=== PATIENT | male | born 1985 | race Caucasian/White ===

== ENCOUNTER 2017-05-20 00:56 | Emergency (ER) | payer BC ==
[~2017-05-20] VITALS: Ht 180.3 cm; Wt 84.0 kg
[~2017-05-20 00:56] MED LIST: SILD50TA PO
[2017-05-20 00:58] VITALS: TEMP 36.7; Ht 180.3 cm; Wt 84.0 kg
[2017-05-20] MEDS ORDERED: XYLOCAINE 1%/SOD BICARB 20 ML VIAL INFIL ONE (01:10)
[2017-05-20] MEDS ORDERED: DIPHTHERIA/TETANUS/PERTUSSIS 0.5 ML SYR/VIAL IM. ONE (01:45)
--- NOTE | 2017-05-20 01:48 | EMERGENCY ROOM VISIT NOTE ---
ED Visit Note First contact with patient: 01:02 CHIEF COMPLAINT: Finger laceration HISTORY OF PRESENT ILLNESS: This 31-year-old patient presents to the emergency department with mother after cutting the left second and third finger on a knife on accident just prior to arrival. The bleeding has not stopped. Denies weakness or numbness of the finger. The patient has full range of motion of the fingers. The patient rates the pain as mild and 2/10. The patient denies any other injuries. The patient's tetanus shot is not up to date. REVIEW OF SYSTEMS: A 6 system review of systems was completed with positives and pertinent negatives listed in the HPI. ALLERGIES: None MEDICATIONS: None PMH: none SOCIAL HISTORY: No drug use PHYSICAL EXAM: Vital Signs: Reviewed Nurse's notes, vital signs stable. GENERAL : Pleasant male, in no acute distress, well developed, well nourished. SKIN: There are 2 lacerations: 2.6cm and a 3 cm long lacerations on the hall aspect of the 2nd and 3rd fingers. The edges gape apart with traction. There is no foreign material in the wounds and it looks clean. There is bleeding. No deep structures such as tendons, bones, or significant blood vessels are seen in the base of the wounds. Extension and flexion of the fingers are full and strong. Full range of motion of the wrist and other fingers. Capillary refill less than 2 seconds. Normal sensation to light and sharp touch. EMERGENCY DEPARTMENT COURSE: I examined the patient. #1 Location: left 2nd finger Total length: 3cm Complexity: simple Verbal consent was obtained after the risks and benefits were explained, including but not limited to bleeding, scarring, infection, pain, and bone/joint /nerve damage. At this time, the risks of the procedure are less than the risks of NOT performing the procedure. A time out was taken and the correct patient and site identified. The skin was prepped with betadine. The target area was anesthetized with 2 ml of 1% lidocaine without epinephrine digital block. Copious irrigation was performed using NSS. The skin was re-prepped with betadine and a sterile field set. The wound was explored for foreign bodies and none found. Examination revealed no injury to deep structures such as tendons, bone, or significant blood vessels. Debridement was not performed. The wound edges were approximated using 7, 5-0 simple interrupted nylon sutures. Hemostasis and excellent approximation was achieved. Antibacterial ointment and a sterile dressing applied. Detailed wound care instructions and signs and symptoms of infection reviewed with the pt. No complications and the patient tolerated the procedure well. #2 Finger 3 with a 2.6cm laceration that is simple. Using sterile technique the wound was cleansed with Betadine. 2 ml of 1% buffered lidocaine was used to perform a digital block to anesthetize the patient. The area was sterilely draped. Once the patient was anesthetized, the wound was copiously irrigated under pressure with sterile saline. The wound was explored and there were no deep structures injured. The laceration was repaired using 5 simple interrupted 5-0 nylon sutures. The patient tolerated the procedure well. Hemostasis was achieved. The area was cleaned with sterile saline and dressed with bacitracin ointment and bandage. The patient was given a tetanus booster. The patient was discharged home in good condition. DIAGNOSIS: #1 Finger lacerations to the left hand of the second and third fingers DISCHARGE INSTRUCTIONS & TREATMENT: Keep wound clean and dry. Do not allow any crusting or dried blood to accumulate on sutures. If this occurs, use a 1:1 solution of hydrogen peroxide/water on a Q-tip to clean the wound. Use an antibiotic ointment for 3-4 days, then let wound dry. Suture removal in 10-12 days. Return sooner for any signs of infection (increasing redness, swelling, drainage). Ice and elevate for swelling and pain. Ibuprofen 600 mg and Tylenol 500 mg every 6 hrs for pain. Keep covered when in sun until sutures removed then SPF 50 or higher for one year. Vitamin E oil if desired two weeks after suture removal for reduction of scar. Current/Historical Medications Scheduled Sildenafil Citrate (Viagra), 50 MG PO PRN Allergies Coded Allergies: No Known Allergies (Unverified , 11/21/11) Vital Signs Date Time Temp Pulse Resp B/P (MAP) Pulse Ox O2 Delivery O2 Flow Rate FiO2 05/20/17 00:58 36.7 86 16 138/85 97 Room Air Departure Information Referrals Jose Jansen DO (PCP) Patient Instructions [facility]
[2017-05-20 02:04] VITALS: BP 121/71; PULSE 71; O2SAT 97
== END 2017-05-20 02:04 | disposition home or self-care (01) ==
LOC: C.EDB 00:57
DX: S61.215A Laceration without foreign body of left ring finger without damage to nail, initial encounter (principal); S61.213A Laceration without foreign body of left middle finger without damage to nail, initial encounter; W26.0XXA Contact with knife, initial encounter

== ENCOUNTER 2024-06-22 01:46 | Observation (INO) ==
[2024-06-22] MEDS: LORazepam 1 MG/1 ML SYR ED Inj Use ONE (02:33)
[2024-06-22] MEDS: LORazepam 1 MG/1 ML SYR ED Inj Use IV STA (02:35)
[2024-06-22 02:55] LABS: Basophils # (auto) 0.01 K/uL (0.00-0.20); Basophils % (auto) 0.2 %; Eosinophils # (auto) 0.04 K/uL (0.00-0.50); Eosinophils % (auto) 0.8 %; Hematocrit (blood only) 40.4 % (42.0-52.0); Hemoglobin 14.7 g/dl (14.0-18.0); Immature Granulocytes # (auto) 0.02 K/uL (0.01-0.20); Immature Granulocytes % (auto) 0.4 %; Lymphocytes # (auto) 1.68 K/uL (1.20-3.40); Lymphocytes % (auto) 32.7 %; Mean Corpuscular Hemoglobin 29.9 pg (25.0-34.0); Mean Corpuscular Hgb Conc 36.4 g/dL (32.0-36.0); Mean Corpuscular Volume 82.1 fL (80.0-100.0); Mean Platelet Volume 9.4 fL (9.4-12.4); Monocytes # (auto) 0.72 K/uL (0.11-0.59); Neutrophils # (auto) 2.66 K/uL (1.40-6.50); Neutrophils % (auto) 51.9 %; Platelet Count 210 K/uL (130-400); RDW Coefficient of Variation 11.9 % (11.5-14.5); RDW Standard Deviation 35.2 fL (36.4-46.3); Red Blood Count 4.92 M/uL (4.70-6.10); White Blood Count 5.13 K/ul (4.8-10.8)
[2024-06-22 03:09] LABS: Albumin Globulin Ratio 1.5 (0.9-2); Albumin Level 4.1 gm/dl (3.4-5.0); BUN Creatinine Ratio 16.3 (10-20); Bilirubin,Total 0.5 mg/dl (0.2-1.0); Calcium 9.4 mg/dl (8.6-10.3); Creatinine Clr Calc Pharmacy 119.1 ml/min; Globulin 2.8 gm/dl (2.5-4.0); Potassium 3.7 mmol/L (3.5-5.1); Total Protein 6.9 gm/dl (6.0-8.3)
[2024-06-22 03:16] LABS: Troponin I High Sensitivity 3.7 pg/ml (0-20)
[2024-06-22] MEDS: ONDANSETRON INJ 2 MG/ML 2 ML VIAL ONE (04:03)
[2024-06-22] MEDS: FAMOTIDINE 20MG IV PUSH 20 MG/5 ML SYR IV STA (04:53)
[2024-06-22] MEDS: SODIUM CHLORIDE 0.9% 500 ML IV ONE ×2 (04:53→07:57)
--- NOTE | 2024-06-22 05:07 | Emergency Department Note ---
Impression & Plan Abdominal pain, epigastric, Hematuria the case was signed out to Dr. Vergara at change of shift ED Provider Note NAME: KINSEY KENT AGE: 38 SEX: Male INFORMANT: Patient ED PROVIDER(S): Karli Banegas DO CHIEF COMPLAINT: epigastric pain PLAN: Disposition: the case was signed out to Dr. Vergara at change of shift MEDICAL DECISION MAKING: This is a 38-year-old male who presents to the emergency department with epigastric pain, nausea and slight fever. Patient describes having a GI illness 2 days ago. He began to take Pepto-Bismol and now has some black stools. he admits that he is extremely anxious and has been breathing very fast. He admits that he forced himself to vomit and wonders if he could have strained himself while vomiting. Laboratory studies revealed no leukocytosis or anemia. Renal function and LFTs were normal. Glucose was 132. Troponin was negative. Urinalysis showed no signs of infection but did reveal hematuria. Patient now complains of some epigastric discomfort which radiates to the left flank and left back. I was concerned for the possibility of a ureteral stone and ordered the patient had a CT scan of the abdomen/pelvis to rule out ureteral colic. Patient also complained of some nausea and was given a dose of IV Zofran. I discussed the case with Dr. Vergara who will assume care of the patient and follow-up on the results of the CAT scan. Care/management discussed with: Dr. Vergara Triage Nursing notes: reviewed and agree with them. Vital Signs: reviewed and remarkable for Tachypnea and hyperventilation Chronic Medical/Social Conditions affecting care: patient suffers from some anxiety and is hyperventilating Differential Diagnosis: Boerhaave's syndrome; gastritis, gastric esophageal reflux disease, anxiety, pancreatitis, cholecystitis, aortic dissection, ureteral colic Diagnostics, independently interpreted by me: ECG: normal sinus rhythm at a rate of [address] segment elevation or signs of ischemia. There is no ectopy. Cardiac Monitoring: Normal sinus rhythm at a rate of 72 HPI: 38 year old Male arrives for evaluation of epigastric pain and nausea. patient developed epigastric pain, nausea and slight fever 2 days ago. Patient describes having a GI illness 2 days ago. He began to take Pepto-Bismol and now has some black stools. he admits that he is extremely anxious and has been breathing very fast. He admits that he forced himself to vomit and wonders if he could have strained himself while vomiting. while here in the emergency department, the patient noted that the discomfort in his epigastrium has now radiated into his left upper quadrant and into the his left flank. PAST MEDICAL HISTORY: None, SOCIAL HISTORY: with 1 child and works from home, HOME MEDICATIONS: see list ALLERGIES: none VITALS: See Below PHYSICAL EXAMINATION: General: The patient is extremely anxious and hyperventilating on my initial exam. HEENT: Head - normocephalic and atraumatic. Pupils are equal, round, and reactive to light. Extraocular eye muscles are intact, and sclera are anicteric. Nose - moist nasal mucosa without discharge. Mouth - moist buccal mucosa. Oropharynx is nonerythematous and there is no tonsillar exudate or edema noted. Neck: Supple; no Cervical lymphadenopathy or nuchal rigidity Heart: Regular rate and rhythm. There is a normal S1 and S2 with no murmurs, clicks, or gallops appreciated. Lungs: Clear to auscultation bilaterally with no wheezes, rales, or rhonchi. Abdomen: Soft, mild tenderness to palpation in the epigastrium. There are normal bowel sounds. There are no palpable pulsatile masses or hepatosplenomegaly. There is no guarding, rigidity, or rebound noted. Extremities: No evidence of cyanosis, clubbing, or edema. There are easily palpable peripheral pulses. Skin: warm and dry with good turgor and no rashes. Emergency Department treatment: desk monitor, IV Ativan, IV Zofran emergency department course: The patient was evaluated in room A-10. A complete history and physical was performed. An IV lock was initiated and the patient was given a dose of IV Ativan for extreme anxiety upon presentation. This helped him relax significantly. Laboratory studies were drawn as above. An order was placed for continuous cardiac monitoring. The patient was in a normal sinus rhythm at a rate of 72. A twelve-lead EKG was obtained as described above. Patient complained of some nausea and was given a dose of IV Zofran. patient continued to complain of epigastric discomfort and was given a dose of IV Pepcid which gave him some relief. He was finally able to give a a urine specimen which showed hematuria. The patient was ordered to go for CT scan of the abdomen/pelvis to rule out ureteral stone. The case will be signed out to Dr. Vergara at change of shift. Past Med/Surg History Problem List (Updated 06/22/24 @ 17:02 by Karli Banegas DO) Hematuria (Acute) Abdominal pain, epigastric (Acute) Acute cholecystitis Social History Smoking Status: Never smoker Feels Safe at Home: Yes Allergies Allergies Allergy/AdvReac Type Severity Reaction Status Date / Time No Known Allergies Allergy Unverified 05/20/17 01:58 Home Meds Home Medications Medication Instructions Recorded Confirmed doxycycline hyclate 100 mg capsule 100 mg PO BID 06/22/24 06/22/24 Results & Data (ED) Vital Signs Vital Signs - 24 hr 06/22/24 01:47 06/22/24 01:53 06/22/24 02:12 Temperature 36.3 C L Temperature Source Temporal Artery Scan Pulse Rate 81 75 Pulse Rate [Apical] Pulse Rate [Right Finger] Pulse Rate from SpO2 Sensor Pulse Rhythm [Apical] Respiratory Rate 30 H Respiratory Effort / Characteristics Non-Labored Non-Labored Respiratory Depth Normal Normal Respiratory Pattern Blood Pressure 135/89 Blood Pressure [Left Arm] Blood Pressure [Right Arm] Blood Pressure Mean 104 Blood Pressure Mean [Left Arm] Blood Pressure Mean [Right Arm] Blood Pressure Position [Left Arm] Blood Pressure Position [Right Arm] Pulse Oximetry 100 Oxygen Delivery Method Room Air Oxygen Flow Rate Sepsis Recent Fever Within 48 Hours No Sepsis New/Unexplained Change in Mental Status No Sepsis Action Taken by Nursing No Action Required 06/22/24 02:19 06/22/24 02:21 06/22/24 02:30 Temperature Temperature Source Pulse Rate 76 77 Pulse Rate [Apical] Pulse Rate [Right Finger] Pulse Rate from SpO2 Sensor 79 77 Pulse Rhythm [Apical] Respiratory Rate 15 16 Respiratory Effort / Characteristics Respiratory Depth Respiratory Pattern Blood Pressure Blood Pressure [Left Arm] Blood Pressure [Right Arm] Blood Pressure Mean Blood Pressure Mean [Left Arm] Blood Pressure Mean [Right Arm] Blood Pressure Position [Left Arm] Blood Pressure Position [Right Arm] Pulse Oximetry 100 100 Oxygen Delivery Method Room Air Oxygen Flow Rate Sepsis Recent Fever Within 48 Hours Sepsis New/Unexplained Change in Mental Status Sepsis Action Taken by Nursing 06/22/24 02:34 06/22/24 02:51 06/22/24 02:57 Temperature Temperature Source Pulse Rate 69 77 Pulse Rate [Apical] Pulse Rate [Right Finger] Pulse Rate from SpO2 Sensor 69 76 Pulse Rhythm [Apical] Respiratory Rate 15 17 Respiratory Effort / Characteristics Respiratory Depth Respiratory Pattern Blood Pressure Blood Pressure [Left Arm] Blood Pressure [Right Arm] Blood Pressure Mean Blood Pressure Mean [Left Arm] Blood Pressure Mean [Right Arm] Blood Pressure Position [Left Arm] Blood Pressure Position [Right Arm] Pulse Oximetry 98 100 99 Oxygen Delivery Method Room Air Oxygen Flow Rate Sepsis Recent Fever Within 48 Hours Sepsis New/Unexplained Change in Mental Status Sepsis Action Taken by Nursing 06/22/24 03:10 06/22/24 03:10 06/22/24 03:10 Temperature Temperature Source Pulse Rate Pulse Rate [Apical] Pulse Rate [Right Finger] Pulse Rate from SpO2 Sensor Pulse Rhythm [Apical] Respiratory Rate Respiratory Effort / Characteristics Respiratory Depth Respiratory Pattern Blood Pressure 154/92 H 154/92 H 154/92 H Blood Pressure [Left Arm] Blood Pressure [Right Arm] Blood Pressure Mean 119 119 119 Blood Pressure Mean [Left Arm] Blood Pressure Mean [Right Arm] Blood Pressure Position [Left Arm] Blood Pressure Position [Right Arm] Pulse Oximetry Oxygen Delivery Method Oxygen Flow Rate Sepsis Recent Fever Within 48 Hours Sepsis New/Unexplained Change in Mental Status Sepsis Action Taken by Nursing 06/22/24 03:21 06/22/24 03:36 06/22/24 04:00 Temperature Temperature Source Pulse Rate 68 71 Pulse Rate [Apical] Pulse Rate [Right Finger] Pulse Rate from SpO2 Sensor 72 71 Pulse Rhythm [Apical] Respiratory Rate 12 22 Respiratory Effort / Characteristics Respiratory Depth Respiratory Pattern Blood Pressure 133/85 Blood Pressure [Left Arm] Blood Pressure [Right Arm] Blood Pressure Mean 94 Blood Pressure Mean [Left Arm] Blood Pressure Mean [Right Arm] Blood Pressure Position [Left Arm] Blood Pressure Position [Right Arm] Pulse Oximetry 99 99 Oxygen Delivery Method Oxygen Flow Rate Sepsis Recent Fever Within 48 Hours Sepsis New/Unexplained Change in Mental Status Sepsis Action Taken by Nursing 06/22/24 04:15 06/22/24 04:21 06/22/24 04:33 Temperature Temperature Source Pulse Rate 75 66 72 Pulse Rate [Apical] Pulse Rate [Right Finger] Pulse Rate from SpO2 Sensor 77 66 72 Pulse Rhythm [Apical] Respiratory Rate 13 12 16 Respiratory Effort / Characteristics Respiratory Depth Respiratory Pattern Blood Pressure Blood Pressure [Left Arm] Blood Pressure [Right Arm] Blood Pressure Mean Blood Pressure Mean [Left Arm] Blood Pressure Mean [Right Arm] Blood Pressure Position [Left Arm] Blood Pressure Position [Right Arm] Pulse Oximetry 98 94 98 Oxygen Delivery Method Oxygen Flow Rate Sepsis Recent Fever Within 48 Hours Sepsis New/Unexplained Change in Mental Status Sepsis Action Taken by Nursing 06/22/24 04:42 06/22/24 04:54 06/22/24 04:55 Temperature Temperature Source Pulse Rate 74 80 Pulse Rate [Apical] Pulse Rate [Right Finger] Pulse Rate from SpO2 Sensor 73 82 Pulse Rhythm [Apical] Respiratory Rate 16 16 Respiratory Effort / Characteristics Respiratory Depth Respiratory Pattern Blood Pressure 158/88 H Blood Pressure [Left Arm] Blood Pressure [Right Arm] Blood Pressure Mean 110 Blood Pressure Mean [Left Arm] Blood Pressure Mean [Right Arm] Blood Pressure Position [Left Arm] Blood Pressure Position [Right Arm] Pulse Oximetry 99 96 Oxygen Delivery Method Oxygen Flow Rate Sepsis Recent Fever Within 48 Hours Sepsis New/Unexplained Change in Mental Status Sepsis Action Taken by Nursing 06/22/24 04:55 06/22/24 04:55 06/22/24 05:00 Temperature Temperature Source Pulse Rate 73 Pulse Rate [Apical] Pulse Rate [Right Finger] Pulse Rate from SpO2 Sensor 72 Pulse Rhythm [Apical] Respiratory Rate 16 Respiratory Effort / Characteristics Respiratory Depth Respiratory Pattern Blood Pressure 158/88 H 158/88 H Blood Pressure [Left Arm] Blood Pressure [Right Arm] Blood Pressure Mean 110 110 Blood Pressure Mean [Left Arm] Blood Pressure Mean [Right Arm] Blood Pressure Position [Left Arm] Blood Pressure Position [Right Arm] Pulse Oximetry 95 Oxygen Delivery Method Oxygen Flow Rate Sepsis Recent Fever Within 48 Hours Sepsis New/Unexplained Change in Mental Status Sepsis Action Taken by Nursing 06/22/24 05:00 06/22/24 05:00 06/22/24 05:00 Temperature Temperature Source Pulse Rate Pulse Rate [Apical] Pulse Rate [Right Finger] Pulse Rate from SpO2 Sensor Pulse Rhythm [Apical] Respiratory Rate Respiratory Effort / Characteristics Respiratory Depth Respiratory Pattern Blood Pressure 164/90 H 164/90 H 164/90 H Blood Pressure [Left Arm] Blood Pressure [Right Arm] Blood Pressure Mean 108 108 108 Blood Pressure Mean [Left Arm] Blood Pressure Mean [Right Arm] Blood Pressure Position [Left Arm] Blood Pressure Position [Right Arm] Pulse Oximetry Oxygen Delivery Method Oxygen Flow Rate Sepsis Recent Fever Within 48 Hours Sepsis New/Unexplained Change in Mental Status Sepsis Action Taken by Nursing 06/22/24 05:27 06/22/24 05:30 06/22/24 05:30 Temperature Temperature Source Pulse Rate 75 Pulse Rate [Apical] Pulse Rate [Right Finger] Pulse Rate from SpO2 Sensor 76 Pulse Rhythm [Apical] Respiratory Rate 16 Respiratory Effort / Characteristics Respiratory Depth Respiratory Pattern Blood Pressure 167/86 H 167/86 H Blood Pressure [Left Arm] Blood Pressure [Right Arm] Blood Pressure Mean 119 119 Blood Pressure Mean [Left Arm] Blood Pressure Mean [Right Arm] Blood Pressure Position [Left Arm] Blood Pressure Position [Right Arm] Pulse Oximetry 96 Oxygen Delivery Method Oxygen Flow Rate Sepsis Recent Fever Within 48 Hours Sepsis New/Unexplained Change in Mental Status Sepsis Action Taken by Nursing 06/22/24 05:36 06/22/24 05:42 06/22/24 06:16 Temperature Temperature Source Pulse Rate 78 73 70 Pulse Rate [Apical] Pulse Rate [Right Finger] Pulse Rate from SpO2 Sensor 79 73 Pulse Rhythm [Apical] Respiratory Rate 14 17 Respiratory Effort / Characteristics Respiratory Depth Respiratory Pattern Blood Pressure Blood Pressure [Left Arm] Blood Pressure [Right Arm] Blood Pressure Mean Blood Pressure Mean [Left Arm] Blood Pressure Mean [Right Arm] Blood Pressure Position [Left Arm] Blood Pressure Position [Right Arm] Pulse Oximetry 97 97 Oxygen Delivery Method Oxygen Flow Rate Sepsis Recent Fever Within 48 Hours Sepsis New/Unexplained Change in Mental Status Sepsis Action Taken by Nursing 06/22/24 06:21 06/22/24 07:51 06/22/24 09:03 Temperature Temperature Source Pulse Rate 69 75 71 Pulse Rate [Apical] Pulse Rate [Right Finger] Pulse Rate from SpO2 Sensor 70 74 71 Pulse Rhythm [Apical] Respiratory Rate 17 20 19 Respiratory Effort / Characteristics Respiratory Depth Respiratory Pattern Blood Pressure 133/84 144/79 H Blood Pressure [Left Arm] Blood Pressure [Right Arm] Blood Pressure Mean 100 100 Blood Pressure Mean [Left Arm] Blood Pressure Mean [Right Arm] Blood Pressure Position [Left Arm] Blood Pressure Position [Right Arm] Pulse Oximetry 97 99 97 Oxygen Delivery Method Oxygen Flow Rate Sepsis Recent Fever Within 48 Hours Sepsis New/Unexplained Change in Mental Status Sepsis Action Taken by Nursing 06/22/24 09:30 06/22/24 13:03 06/22/24 13:37 Temperature 37.1 C Temperature Source Oral Pulse Rate 72 Pulse Rate [Apical] Pulse Rate [Right Finger] 80 Pulse Rate from SpO2 Sensor 74 Pulse Rhythm [Apical] Respiratory Rate 20 18 20 Respiratory Effort / Characteristics Non-Labored Respiratory Depth Normal Respiratory Pattern Regular Blood Pressure 130/78 143/82 H Blood Pressure [Left Arm] Blood Pressure [Right Arm] 148/78 H Blood Pressure Mean 93 102 Blood Pressure Mean [Left Arm] Blood Pressure Mean [Right Arm] 101 Blood Pressure Position [Left Arm] Blood Pressure Position [Right Arm] Semi-fowlers Pulse Oximetry 97 97 99 Oxygen Delivery Method Room Air Oxygen Flow Rate Sepsis Recent Fever Within 48 Hours Sepsis New/Unexplained Change in Mental Status Sepsis Action Taken by Nursing 06/22/24 16:07 06/22/24 16:15 06/22/24 16:25 Temperature 36.6 C Temperature Source Temporal Artery Scan Pulse Rate Pulse Rate [Apical] 101 H 98 H 94 H Pulse Rate [Right Finger] Pulse Rate from SpO2 Sensor Pulse Rhythm [Apical] Regular Regular Regular Respiratory Rate 23 15 13 Respiratory Effort / Characteristics Non-Labored Spontaneous Non-Labored Spontaneous Non-Labored Spontaneous Respiratory Depth Normal Normal Normal Respiratory Pattern Regular Regular Regular Blood Pressure Blood Pressure [Left Arm] 152/87 H 149/96 H 149/86 H Blood Pressure [Right Arm] Blood Pressure Mean Blood Pressure Mean [Left Arm] 108 113 107 Blood Pressure Mean [Right Arm] Blood Pressure Position [Left Arm] Semi-fowlers Semi-fowlers Semi-fowlers Blood Pressure Position [Right Arm] Pulse Oximetry 100 98 97 Oxygen Delivery Method Oxymask Room Air Room Air Oxygen Flow Rate 5 Sepsis Recent Fever Within 48 Hours Sepsis New/Unexplained Change in Mental Status Sepsis Action Taken by Nursing 06/22/24 16:35 Temperature 36.8 C Temperature Source Oral Pulse Rate Pulse Rate [Apical] 99 H Pulse Rate [Right Finger] Pulse Rate from SpO2 Sensor Pulse Rhythm [Apical] Regular Respiratory Rate 22 Respiratory Effort / Characteristics Non-Labored Spontaneous Respiratory Depth Normal Respiratory Pattern Regular Blood Pressure Blood Pressure [Left Arm] 127/87 Blood Pressure [Right Arm] Blood Pressure Mean Blood Pressure Mean [Left Arm] 100 Blood Pressure Mean [Right Arm] Blood Pressure Position [Left Arm] Semi-fowlers Blood Pressure Position [Right Arm] Pulse Oximetry 97 Oxygen Delivery Method Room Air Oxygen Flow Rate Sepsis Recent Fever Within 48 Hours Sepsis New/Unexplained Change in Mental Status Sepsis Action Taken by Nursing Laboratory Data 06/22/24 02:34 06/22/24 02:34 Lab Results 06/22/24 06/22/24 Range/Units 02:34 Unknown WBC 5.13 (4.8-10.8) K/ul RBC 4.92 (4.70-6.10) M/uL Hgb 14.7 (14.0-18.0) g/dl Hct 40.4 L (42.0-52.0) % MCV 82.1 (80.0-100.0) fL MCH 29.9 (25.0-34.0) pg MCHC 36.4 H (32.0-36.0) g/dL RDW Std Deviation 35.2 L (36.4-46.3) fL RDW Coeff of Jenelle 11.9 (11.5-14.5) % Plt Count 210 (130-400) K/uL MPV 9.4 (9.4-12.4) fL Immature Gran % (Auto) 0.4 % Neut % (Auto) 51.9 % Lymph % (Auto) 32.7 % [place] % (Auto) 14.0 % Eos % (Auto) 0.8 % Baso % (Auto) 0.2 % Neut # (Auto) 2.66 (1.40-6.50) K/uL Lymph # (Auto) 1.68 (1.20-3.40) K/uL [place] # (Auto) 0.72 H (0.11-0.59) K/uL Eos # (Auto) 0.04 (0.00-0.50) K/uL Baso # (Auto) 0.01 (0.00-0.20) K/uL Immature Gran # (Auto) 0.02 (0.01-0.20) K/uL Sodium 137 (136-145) mmol/L Potassium 3.7 (3.5-5.1) mmol/L Chloride 104 (98-107) mmol/L Carbon Dioxide 24 (21-32) mmol/L Anion Gap 9 (3-11) BUN 14 (6-23) mg/dl Creatinine 0.86 (0.6-1.4) mg/dl Est Cr Clr Drug Dosing 119.1 ml/min eGFR 112.96 BUN/Creatinine Ratio 16.3 (10-20) Glucose 132 H (70-99(Fasting)) mg/dl Calcium 9.4 (8.6-10.3) mg/dl Total Bilirubin 0.5 (0.2-1.0) mg/dl AST 22 (13-39) U/L ALT 19 (7-52) U/L Alkaline Phosphatase 62 (34-104) U/L Troponin I High Sens 3.7 (0-20) pg/ml Total Protein 6.9 (6.0-8.3) gm/dl Albumin 4.1 (3.4-5.0) gm/dl Globulin 2.8 (2.5-4.0) gm/dl Albumin/Globulin Ratio 1.5 (0.9-2) Lipase 25 (11-82) U/L Urine Color Dark Yellow Urine Appearance Clear (Clear) Urine pH 7.5 (4.5-7.5) Ur Specific [place] 1.044 H (1.000-1.030) Urine Protein 1+ H (Negative) Urine Glucose (UA) Negative (Negative) Urine Ketones 1+ H (Negative) Urine Blood Negative (Negative) Urine Nitrite Negative (Negative) Urine Bilirubin Negative (Negative) Urine Urobilinogen Negative (Negative) Ur Leukocyte Esterase Negative (Negative) Urine WBC (Auto) 0-5 (0-5) /hpf Urine RBC (Auto) 3-5 H (0-2) /hpf U Hyaline Cast (Auto) 0-2 (0-2) /lpf U Epithel Cells (Auto) 0-2 (0-2) /hpf Urine Bacteria (Auto) 1+ H (None Seen) Calcium Oxalate Crystal Present A (None Prsent) Amorphous Sediment Present A (None Prsent) Urine Mucus Present A (None Prsent) Administered Medications Lactated Ringer's (Lr) 1,000 mls @ 15 mls/hr IV .Q24H [facility] Stop: 06/23/24 13:44 Last Admin: 06/22/24 13:49 Dose: 15 mls/hr Documented By: KLR Discontinued Medications Bupivacaine HCl/Epinephrine Bitart (Bupivacaine/Epinephrine 0.25% 1:200,000 30 Ml Vial) Confirm Administered Dose 30 ml .ROUTE .STK-MED ONE Stop: 06/22/24 13:54 Last Admin: 06/22/24 15:25 Dose: 20 ml Documented By: FRANK Famotidine (Pepcid 20mg Iv Push) 20 mg in 5 mls @ 2.5 mls/min IV NOW STA Stop: 06/22/24 04:51 Last Admin: 06/22/24 04:53 Dose: 2.5 mls/min Documented By: DEANN Sodium Chloride (Nss) 500 mls @ 999 mls/hr IV .Q31M ONE Stop: 06/22/24 05:20 Last Infusion: 06/22/24 05:47 Dose: Infused Documented By: Admin: 06/22/24 04:53 Dose: 999 mls/hr Documented By: DEANN Sodium Chloride (Nss) 500 mls @ 999 mls/hr IV .Q31M ONE Stop: 06/22/24 07:03 Last Infusion: 06/22/24 13:26 Dose: Infused Documented By: Admin: 06/22/24 07:57 Dose: 999 mls/hr Documented By: Piperacillin Sod/Tazobactam Sod (Zosyn) 4.5 gm in 100 mls @ 200 mls/hr IV NOW ONE; Protocol Stop: 06/22/24 12:48 Last Infusion: 06/22/24 13:26 Dose: Infused Documented By: Admin: 06/22/24 12:29 Dose: 200 mls/hr Documented By: ALBERTO Lorazepam (Lorazepam 1 Mg/1 Ml Syr Ed Inj Use) Confirm Administered Dose 1 mg .ROUTE .STK-MED ONE Stop: 06/22/24 02:33 Last Admin: 06/22/24 02:33 Dose: 1 mg Documented By: DEANN Lorazepam (Lorazepam 1 Mg/1 Ml Syr Ed Inj Use) 1 mg IV ONE STA Stop: 06/22/24 02:35 Last Admin: 06/22/24 02:35 Dose: Not Given Documented By: DEANN Ondansetron HCl (Ondansetron Inj 2 Mg/Ml 2 Ml Vial) Confirm Administered Dose 4 mg .ROUTE .STK-MED ONE Stop: 06/22/24 04:03 Last Admin: 06/22/24 04:03 Dose: 4 mg Documented By: DEANN Imaging Data Radiologist's Impression: Abdomen/Pelvis CT 06/22/24 07:05 EXAM: CT abd pelvis wo con CLINICAL HISTORY: eval for a left sided kidney stone. TECHNIQUE: A CT scan of the abdomen and pelvis was performed without IV contrast. Coronal and sagittal reconstructive images were also obtained. One of the following dose reduction techniques were utilized for this exam: Automated exposure control, adjustment of the mA and/or kV according to patient size, and use of iterative reconstruction. COMPARISON: None. FINDINGS: The gallbladder is seen distended measuring about 8.5 x 4.5 cm. No radiodense stones could be identified. There is mild wall thickening with pericholecystic minimal fat stranding much evident at the fundus region. The kidneys are normal in size and shape. No calculi, masses, or hydronephrosis. No ureteric stones or evident hydroureter was observed admitted The liver is normal in size. No diffuse parenchymal abnormality. The intrahepatic biliary radicals and the bile ducts are normal. Left hepatic lobe hypodense focal lesion measures 9 mm. Mildly enlarged spleen. No focal lesion was observed. The pancreas and adrenal glands are unremarkable. Multiple small mesenteric lymph nodes were observed the largest measures 10 x 7 mm. Colonic diverticulosis. No diverticulitis. The visualized small bowel loops are unremarkable. No CT evidence of acute appendicitis. The urinary bladder shows a slightly thickened wall measures up to 4 mm. No stones, mass, or diverticula were observed. The prostate was unremarkable. No evidence of pelvic lymphadenopathy. No ascites. A scan through the lower chest reveals a right lung lower lobe nodule measuring about 5.5 mm. L1 small sclerotic focus was observed likely a bone island. IMPRESSION: 1. The gallbladder is distended showing mild wall thickening with pericholecystic minimal fat stranding much evident at the fundus region. No radiodense stones could be identified. Findings are concerning for early cholecystitis. Clinical correlation and further ultrasound evaluation are recommended. 2. No renal stones or hydronephrosis. 3. The left hepatic lobe hypodense focal lesion measures 9 mm. This could be a hepatic cyst or a hemangioma. If clinically needed, further evaluation with triphasic CT/MRI may be recommended. 4. Mild splenomegaly. 5. Multiple small mesenteric lymph nodes were observed the largest measures 10 x 7 mm. 6. Colonic diverticulosis. No diverticulitis. 7. The urinary bladder shows a slightly thickened wall that measures up to 4 mm. Urine analysis correlation is advised. 8. A right lung lower lobe nodule measures about 5.5 mm. According to the Fleischner Society pulmonary nodule recommendations for low-risk patients no routine follow-up is required and for high-risk patients optional CT at 12 months is advised. Electronically signed by Eldon Byrnes 06-22-2024 09:09 AM Gallbladder Ultrasound 06/22/24 09:17 ABDOMINAL ULTRASOUND, RIGHT UPPER QUADRANT HISTORY: Acute right upper quadrant abdominal pain upper abd pain. COMPARISON: CT 06/22/2024 FINDINGS: Pancreas: The pancreas is obscured by bowel gas. Liver: Unremarkable. Gallbladder: Nonspecific borderline gallbladder wall thickening measures up to 4 mm. Trace pericholecystic fluid. Layering gallbladder sludge. Distention measuring up to 11 cm. Positive sonographic Mcdonough sign. No shadowing gallstones identified by ultrasound. CBD: 4 mm, not well seen. Right kidney: No hydronephrosis. IMPRESSION: 1. Sludge-filled gallbladder is distended with wall thickening. Additionally, the sonographic Mcdonough sign was reported as positive and there is trace pericholecystic fluid without shadowing cholelithiasis identified by ultrasound. Findings may represent acute cholecystitis within the appropriate clinical setting. Nuclear medicine hepatobiliary scan may also be considered. 2. No biliary ductal dilation. ACT 112: Negative or not required by law. Electronically signed by: Eduardo Huynh M.D. 06/22/2024 10:09 AM Discharge Plan Visit Data Chief Complaint: Respiratory Problems Stated Complaint: HARD TO BREATHE ED Provider: Eyad Vergara Discharge Problem: Abdominal pain, epigastric, Hematuria Patient Disposition: Admitted As Inpatient Discharge Instructions Interventions: ED Discharge Assessment Last Done: 06/22/24 13:24
--- OUTSIDE RECORDS SUMMARY | 2024-06-22 06:45 | External Medical Summary | Summary of Care ---
Author Name Unknown Organization [facility] Address [address] [place] [address] Phone [phone] Care Team Providers Care Body Cleaner Name Role Phone Greg Bateman MD Primary Care Provider [phone] Reason for Visit * Reason Comments Cough Pt here for complain ts of a cough since Tuesday. Pt states that the coughing is now causing chest discomfort. Encounter Details Date Type Department Care Team (Late st Contact Info) Description 01/05/2024 9:00 AM EDT Office Visit Family Practice [facility] [address] [place] [address] Schuyler Lauren MD [address] [place] [address] Viral upper respiratory tract infection*; Postnasal drip Allergies No known active allergiesdocumented as of this encounter (statuses as of 01/05/2024) Medications Medication Sig Dispensed Refills Start Date End Date Status Multi Vitamin Oral Tablet Take 1 Each by mouth in the morning. Active documented as of this encounter (statuses as of 01/05/2024) Active Problems Problem Noted Date Diagnosed Date Routine child health exam 09/28/2000 PROPHY. VACCINATION AGAINST TETANUS-DIPHTHERIA ( TD) 09/28/2000 ACNE VULGARIS documented as of this encounter (statuses as of 01/05/2024) Immunizations Name Administration Dates Next Due TDAP (age 10 and older)(Boostrix) 12/01/2022 documented as of this encounter Social History Tobacco Use Types Packs/Day Years Used Date Smoking Tobacco: Never Alcohol Use Standard Drinks/Week Comments No 0 (1 standard drink = 0.6 oz pur e alcohol) Hunger Vital Sign Answer Date Recorded Within the past 12 months, y ou worried that your food would run out before you got the money to buy more. Never true 12/26/19 24 Within the past 12 months, t he food you bought just didn't last and you didn't have money to get more. Never true 12/26/2023 Childcare Answer Date Recorded Do you feel overwhelmed with taking care of a child, family member or friend? No 12/26/2023 Does your family need help f inding childcare? (Household - for ages 0-17 years) Not on file 12/26/2023 Clothing Answer Date Recorded Have you been unable to get clothing when it was really needed? No 12/26/2023 Is your family able to get c lothes or diapers when needed? (Household - for ages 0-17 years) Not on file 12/26/2023 Personal Safety Answer Date Recorded Do you feel unsafe or have concerns for your saf ety? No 12/26/2023 Do you have concerns for you r family's safety? (Household - for ages 0-17 years) Not on file 12/26/2023 Utilities Answer Date Recorded Do you have trouble paying y our heating, water, or electric bill? No 12/26/2023 Is your family able to pay t he heat, water, or electric bill? (Household - for ages 0-17 years) Not on file 12/26/2023 Does your family have access to good internet? (Household - for ages 0-17 years) Not on file 12/26/2023 Employment Status Answer Date Recorded Are you unemployed or without regular income? No 12/26/2023 Does the household have a re gular source of income? (Household - for ages 0-17 years) Not on file 12/26/2023 Social Connections Answer Date Recorded How often do you feel lonely or isolated from th ose around you? Rarely 12/26/2023 Financial Resource Strain Answer Date R ecorded Do you have any trouble payi ng for your medications, or do you think you might in the future? No 12/26/2023 Does your family have troubl e paying for medicine? (Household - for ages 0-17 years) Not on file 12/26/2023 Transportation Needs Answer Date Record ed Do you have trouble getting a ride to medical visits or work? (Adult - for ages 18 years and over) Not on file 12/26/2023 Does your family have a hard time getting a ride to doctors visits? (Household - for ages 0-17 years) Not on file 12/26/2023 Has lack of transportation k ept you from medical appointments, meetings, work, or from getting things needed for daily living? Check all that apply. No 12/26/2023 Do you (or your family) have trouble finding or paying for a ride (transportation)? (Household - for ages 0-17 years) Not on file 12/26/2023 Housing Stability Answer Date Recorded Do you currently live in a s helter or have no steady place to sleep at night? No 12/26/2023 Do you think you are at risk of becoming homeless? (Adult - for ages 18 years and over) Not on file 12/26/2023 Does your family worry about paying for your home or becoming homeless? (Household - for ages 0-17 years) Not on file 0 12/26/2023 Are you homeless or worried that you might be in the future? No 12/26/2023 Are you (or your family) nereida eless or worried that you might be in the future? (Household - for ages 0-17 years) Not on file Food Insecurity Answer Date Recorded Do you need food for this week? No 12/26/2023 Are you able to get enough f ood for your family? (Household - for ages 0-17 years) Not on file 12/26/2023 Does your family need food t his week? (Household - for ages 0-17 years) Not on file 12/26/2023 Do you always have enough fo od for your family? (Household - for ages 0-17 years) Not on file 12/26/2023 Sex and Gender Information Value Date Recorded Sex Assigned at Male 12/26/2023 4:57 PM EDT Gender Identity Male 12/26/2023 4:57 PM EDT Sexual Orientation Straight 12/26/2023 4: 57 PM EDT Job Start Date Occupation Industry Not on file Not on file Not on file documented as of this encounter Last Filed Vital Signs Vital Sign Reading Time Taken Comments Blood Pressure 124/82 01/05/2024 9:15 AM EDT Pulse 75 01/05/2024 9:15 AM EDT Temperature 36.4 C (97.5 F) 01/05/2024 9:15 AM ED T Respiratory Rate 16 01/05/2024 9:15 AM EDT Oxygen Saturation 96% 01/05/2024 9:15 AM EDT Inhaled Oxygen Concentration - - Weight 89.1 kg (196 lb 6.4 oz) 01/05/2024 9:15 A M EDT Height 179 cm (5' 10.47") 01/05/2024 9:15 AM EDT Body Mass Index 27.81 01/05/2024 9:15 AM EDT documented in this encounter Progress Notes * Schuyler Lauren MD - 01/05/2024 9:48 AM EDT Images from the original note were not included. History of Present Illness Augusto Leyva is a 38 year old male that presents for Cough (Pt here for complaints of a cough since Tuesday. Pt states that the coughing is now causing chest discomfort. ) Physical Exam BP 124/82 (BP Site: Left Arm, BP Position: Sitting, BP Cuff Size: Regular) | Pulse 75 | Temp 36.4 C (97.5 F) (Tympanic) | Resp 16 | Ht 1.79 m (5' 10.47") | Wt 89.1 kg (196 lb 6.4 oz) | SpO2 96% |BMI 27.81 kg/m | BSA 2.1 m AAOx3 Normal affect Non ill appearing NCAT/ PERRL Neck supple Throat without exudate but with evidence of postnasal drip redness RRR Lungs w/ faint rhonchi that clear easily with cough Abd soft +BS Ext warm and well perfused No gross neuro deficits Normal gait I have reviewed most recent labs None Assessment and Plan Viral upper respiratory tract infection - already defervescing. Sx control with below. Sleep. Hydrate. No abx indicated. He did take covid test at home x2 and both negative. Postnasal drip - causing of phonation changes/scratchy throat. Hot tea with honey Ibuprofen prn Sudafed prn Wrap-Up Prn - call if worsening Time: I spent a total of 10-19 minutes (exact time 15 mins) on the date of service in preparation, delivery, and documentation of the care provided to Augusto Leyva excluding any time spent in the performance of separately billed services. documented in this encounter Plan of Treatment Upcoming Encounters Date Type Department Care Team (Late st Contact Info) Description 12/31/2024 4:20 PM EDT Office Visit [facility] [address] [place] [address] September, Greg Leung MD [address] [place] [address] Health Maintenance Due Date Last Done Comments Depression Screening 1996 Diabetes Screening 01/06/2024 Postponed from 1984 (Other) HIV Screening 01/06/2024 Postponed from 10/27/1999 (Other) Influenza Vaccine (FLU shot) (#1) 2024 DTaP,Tdap,and Td Vaccines (8 - Td or Tdap) 12/01/2032 12/01/2022, 05/20/2017, 09/28/2000, Additional history exists Hepatitis B Vaccine Completed 04/26/1997, 10/24/1996, 09/24/1996 COVID-19 Vaccine Discontinued 06/08/2021, , 09/16/2020 HPV (Gardasil) Vaccine Aged Out No lo nger eligible based on patient's age to complete this topic Hepatitis C Screening Discontinued MENINGOCOCCAL (MENACTRA/MENVEO) Aged Out No longer eligible based on patient's age to complete this topic Pneumococcal Vaccine: Pediatrics (0 to 5 Years) and At-Risk Patients (6 to 64 Years) Aged Out No longer eligible based on patient's age to complete this topic documented as of this encounter Medical Devices Not on filedocumented as of this encounter Visit Diagnoses Diagnosis Viral upper respiratory tract infection- Primary Acute upper respiratory infections of unspecified site Postnasal drip documented in this encounter Care Teams Body Cleaner Relationship Specialty Start Date End Date September, Greg Leung MD [address] [id number] PCP - General Family Medicine 12/21/23 documented as of this encounter
--- OUTSIDE RECORDS SUMMARY | 2024-06-22 06:46 | External Medical Summary | Summary of Care ---
Author Name Unknown Organization [facility] Address [address] [place] [address] Phone [phone] Care Team Providers Care Division Operations Manager Name Role Phone Greg Bateman MD Primary Care Provider [phone] Encounter Details Date Type Department Care Team (Late st Contact Info) Description 12/27/2023 Telephone [facility] [address] [place] [address] Greg Bateman MD [address] [place] [address] Allergies No known active allergiesdocumented as of this encounter (statuses as of 01/04/2024) Medications No known medicationsdocumented as of this encounter (statuses as of 01/04/2024) Active Problems Problem Noted Date Diagnosed Date Routine child health exam 09/28/2000 PROPHY. VACCINATION AGAINST TETANUS-DIPHTHERIA ( TD) 09/28/2000 ACNE VULGARIS documented as of this encounter (statuses as of 01/04/2024) Immunizations Name Administration Dates Next Due TDAP [...] 12/26/2023 Does the household have a re lar source of income? (Household - for ages [...] on file documented as of this encounter Miscellaneous Notes * Telephone Encounter - Darío Wells MED ASSIST - 12/27/2023 5:01 PM EDT Called [facility] pharmacy to obtain vaccine record of TDAP documented in this encounter Plan of Treatment Upcoming Encounters Date Type Department Care Team (Late st Contact Info) Description 01/05/2024 9:00 AM EDT Office Visit [facility] [address] [place] [address] Schuyler Lauren MD [address] [place] [address] 12/31/2024 4:20 PM EDT Office Visit [facility] [address] [place] [address] SeptemberGreg MD [address] [place] [address] Health Maintenance Due Date Last Done Comments Diabetes Screening 1984 Depression Screening 1996 HIV Screening 10/27/1999 Hepatitis C Screening 2002 COVID-19 Vaccine ( season) 2023 06/08/2021, 10/14/2020, 09/16/2020 Influenza Vaccine (FLU shot) (#1) 2024 DTaP,Tdap,and Td Vaccines (8 - Td or Tdap) 12/01/2032 12/01/2022, 05/20/2017, 09/28/2000, Additional history exists Hepatitis B Vaccine Completed 04/26/1997, 10/24/1996, 09/24/1996 HPV (Gardasil) Vaccine Aged Out No lo nger eligible based on patient's age to complete this topic MENINGOCOCCAL (MENACTRA/MENVEO) Aged Out No longer eligible based on patient's age to complete this topic Pneumococcal Vaccine: Pediatrics (0 to 5 Years) and At-Risk Patients (6 to 64 Years) Aged Out No longer eligible based on patient's age to complete this topic documented as of this encounter Medical Devices Not on filedocumented as of this encounter Care Teams Division Operations Manager Relationship Specialty Start Date End Date September, Greg Leung MD [address] [place] [id number] PCP - General Family Medicine 12/21/23 documented as of this encounter
--- OUTSIDE RECORDS SUMMARY | 2024-06-22 06:46 | External Medical Summary | Summary of Care ---
Author Name Unknown Organization [facility] Address [address] [place] [address] Phone [phone] Care Team Providers Care Manager Mechanical Name Role Phone Greg Bateman MD Primary Care Provider [phone] Reason for Visit * Reason Onset Date Comments MyCode Consent 01/05/2024 Encounter Details Date Type Department Care Team (Late st Contact Info) Description 01/05/2024 Orders Only [facility] [address] [place] [address] Cynthia Schaefer CHRA My[employer] Research Other*[id number]* Allergies No known active allergiesdocumented as of this encounter (statuses as of 01/05/2024) Medications No known medicationsdocumented as of this [...] on file documented as of this encounter Progress Notes * Cynthia Schaefer CHRA - 01/05/2024 9:12 AM EDT MyCode Consent Documentation Augusto Leyva provided consent/authorization to participate in the MyCode Project. documented in this encounter Plan of Treatment Upcoming Encounters Date Type Department Care Team (Late st Contact Info) Description 12/31/2024 4:20 PM EDT Office Visit [facility] [address] [place] [address] September, Greg Leung MD [address], [place] [id number] Scheduled Orders Name Type Priority Associated Diagnoses Orde r Schedule MYCODE INITIAL ADULT Lab Routine My[facility] Research Other*[id number] Expected: 01/05/2024 (Approximate), Expires: 01/24/2025 Health Maintenance Due Date Last Done Comments [...] as of this encounter Visit Diagnoses Diagnosis My[employer] Research Other*[id number]- Primary documented in this encounter Care Teams Manager Mechanical Relationship Specialty Start Date End Date September, Greg Leung MD [address] [place] [address] PCP - General Family Medicine 12/21/23 documented as of this encounter
--- OUTSIDE RECORDS SUMMARY | 2024-06-22 06:46 | External Medical Summary | Summary of Care ---
Author Name Unknown Organization [facility] Address [address] [place] [address] Phone [phone] Care Team Providers Care Computer Forensics Examiner Name Role Phone Greg Bateman MD Primary Care Provider [phone] Reason for Visit * Reason Comments NEW PATIENT Patient is here toda y for a new patient examPatient states he would like a dermatology referral, due to moles on his stomachPatient states he has not been to the dr in 8-10 years Encounter Details Date Type Department Care Team (Late st Contact Info) Description 12/27/2023 4:20 PM EDT Office Visit [facility] [address] [place] [phone] Greg Bateman MD [address] [place] [address] Screening for lipid disorders*; Screening for diabetes mellitus; Screening for deficiency anemia; Seborrheic keratosis; Encounter for routine preventive care for patient older than 28 days Allergies No known active allergiesdocumented as of this encounter (statuses as of 12/27/2023) Medications Medication Sig Dispensed Refills Start Date End Date Status RETIN-A 0.05 % EX CREAIndications:O ther acne Apply to face at betime and back in the morning 45gm 5 08/23/2002 12/27/2023 Discontinued( Medication List Clean Up) MINOCYCLINE HCL 100 MG OR CAPSIndications:O ther acne Take one capsule by mouth twice daily 62 1 11/29/2002 12/27/2023 Discontinued( Medication List Clean Up) BENZAMYCIN 5-3 % EX GELIndications:Ot her acne Apply to face in the morning and back at night 46.6GM 5 11/29/2002 12/27/2023 Discontinued( Medication List Clean Up) CLEOCIN-T 1 % EX SOLNIndications:O ther specified disease of hair and hair follicles Apply to affected areas on arms twice daily 60ML 5 11/29/2002 12/27/2023 Discontinued( Medication List Clean Up) documented as of this encounter (statuses as of 12/27/2023) Active Problems Problem Noted Date Diagnosed Date Routine child health exam 09/28/2000 PROPHY. VACCINATION AGAINST TETANUS-DIPHTHERIA ( TD) 09/28/2000 ACNE VULGARIS documented as of this encounter (statuses as of 12/27/2023) Immunizations Name Administration Dates Next Due TDAP [...] Sign Reading Time Taken Comments Blood Pressure 128/78 12/27/2023 4:59 PM EDT Pulse 77 12/27/2023 4:25 PM EDT Temperature 36.7 C (98.1 F) 12/27/2023 4:25 PM ED T Respiratory Rate 16 12/27/2023 4:25 PM EDT Oxygen Saturation 99% 12/27/2023 4:25 PM EDT Inhaled Oxygen Concentration - - Weight 89.1 kg (196 lb 8 oz) 12/27/2023 4:25 PM EDT Height 179 cm (5' 10.47") 12/27/2023 4:25 PM EDT Body Mass Index 27.82 12/27/2023 4:25 PM EDT documented in this encounter Progress Notes * Greg Bateman MD - 12/27/2023 4:22 PM EDT Images from the original note were not included. Assessment and Plan 1. Screening for lipid disorders - LIPID PANEL WITH DIRECT LDL IF TG IS HIGH 2. Screening for diabetes mellitus - HEMOGLOBIN A1C - COMPREHENSIVE METABOLIC PANEL 3. Screening for deficiency anemia - CBC 4. Seborrheic keratosis Reassurance provided. 5. Encounter for routine preventive care for patient older than 28 days Healthy 38 year old male. Screening lab work as above. Up to date vaccines. Continue to follow withdentistry and optometry. Sunscreen when exposed. Seatbelts always. Wrap-Up Follow up yearly. History of Present Illness The patient is a 38 year old male who presents to establish care with the office. Patient presents to establish care with the office. Has not been seen for about 10 years. No significant past medical history. Surgical, family, social history updated in the chart. Up to date Tdap - received [facility] in 2022 prior to of child. Agreeable to screening lab work. Follows with dentistry and optometry routinely. Does have a waxy raised skin lesion on the upper abdomen inferior to the left breast. Physical Exam Vitals: 12/27/23 1625 12/27/23 1659 Temp: 36.7 C (98.1 F) Pulse: 77 Resp: 16 SpO2: 99% BP: 142/88 128/78 BMI: 27.82 Physical Exam Physical Exam Vitals reviewed. Constitutional: General: He is not in acute distress. HENT: Nose: No congestion or rhinorrhea. Eyes: General: No scleral icterus. Pupils: Pupils are equal, round, and reactive to light. Cardiovascular: Rate and Rhythm: Normal rate and regular rhythm. Heart sounds: No murmur heard. Pulmonary: Effort: Pulmonary effort is normal. No respiratory distress. Breath sounds: Normal breath sounds. No wheezing. Abdominal: General: There is no distension. Palpations: Abdomen is soft. Tenderness: There is no abdominal tenderness. Musculoskeletal: Cervical back: Neck supple. Lymphadenopathy: Cervical: No cervical adenopathy. Skin: Comments: 0.5 cm hyperpigmented waxy stuck-on lesion at the left upper abdomen. Neurological: General: No focal deficit present. Mental Status: He is alert. This note has been completed in part utilizing [employer] Speech Voice Recognition Software. Due to technical limitations of the software, grammatical errors, random word insertions, prounoun errors, and incomplete sentences may occur. Any formal questions or concerns about the content, text, or information contained within the body of this dictation should be directly addressed to the provider for clarification. documented in this encounter Nursing Notes * Darío Wells MED ASSIST - 12/27/2023 4:27 PM EDT The patient has been properly identified by confirmation of name and date of . Chief Complaint Patient presents with NEW PATIENT Patient is here today for a new patient exam Patient states he would like a dermatology referral, due to moles on his stomach Patient states he has not been to the dr in 8-10 years documented in this encounter Plan of Treatment Upcoming Encounters Date Type Department Care Team (Late st Contact Info) Description 12/31/2024 4:20 PM EDT Office Visit [facility] [address] [place] [address] SeptemberGreg MD [address] [place] [address] Scheduled Orders Name Type Priority Associated Diagnoses Orde r Schedule LIPID PANEL WITH DIRECT LDL IF TG IS HIGH Lab Routine Screening for lipid disorders Ordered: 12/27/2023 HEMOGLOBIN A1C Lab Routine Screening for diabetes mellitus Ordered: 12/27/2023 COMPREHENSIVE METABOLIC PANEL Lab Routine Screening for diabetes mellitus Ordered: 12/27/2023 CBC Lab Routine Screening for deficiency anemia Ordered: 12/27/2023 Health Maintenance Due Date Last Done Comments Diabetes Screening 1984 Depression Screening 1996 HIV Screening 10/27/1999 Hepatitis C Screening 2002 Hepatitis B Vaccine (1 of 3 - 19+ 3-dose series) 10/27/2003 COVID-19 Vaccine ( - 2022-24 season) 2023 Influenza Vaccine (FLU shot) (#1) 2024 DTaP,Tdap,and Td Vaccines (7 - Td or Tdap) 12/01/2032 12/01/2022, 09/28/2000, 11/07/1989, Additional history exists HPV (Gardasil) Vaccine Aged Out No lo [...] as of this encounter Visit Diagnoses Diagnosis Screening for lipid disorders- Primary Screening for diabetes mellitus Screening for deficiency anemia Screening for other and unspecified deficiency anemia Seborrheic keratosis Other seborrheic keratosis Encounter for routine preventive care for patient older than 28 days documented in this encounter Care Teams Computer Forensics Examiner Relationship Specialty Start Date End Date September, Greg Leung MD [address] [place] [address] PCP - General Family Medicine 12/21/23 documented as of this encounter
--- OUTSIDE RECORDS SUMMARY | 2024-06-22 06:46 | External Medical Summary | Summary of Care ---
Author Name Unknown Organization [facility] Address [address] [place] [address] Phone [phone] Care Team Providers Care Precinct Police Lieutenant Name Role Phone Greg Bateman MD Primary Care Provider [phone] Reason for Visit * Reason Comments NEW PATIENT Patient is here toda y for a new patient examPatient states he would like a dermatology referral, due to moles on his stomachPatient states he has not been to the dr in 8-10 years Encounter Details Date Type Department Care Team (Late st Contact Info) Description 12/27/2023 4:20 PM EDT Office Visit [facility] [address] [place] [id number] Greg Bateman MD [address] [place] [address] Screening for lipid disorders*; Screening [...] of this encounter (statuses as of 12/27/2023) Social History Tobacco Use Types Packs/Day Years [...] Up to date Tdap - received [facility] in 2022 prior to of child. Agreeable [...] note has been completed in part utilizing [employer] Speech Voice Recognition Software. Due to technical [...] Description 12/31/2024 4:20 PM EDT Office Visit [facility] [address] [place] [address] SeptemberGreg MD [address] [place] [address] Scheduled Orders Name Type Priority [...] 1984 Depression Screening 1996 HIV Screening 10/27/1999 DTaP,Tdap,and Td Vaccines (6 - Tdap) 09/29/2000 09/28/2000, 11/07/1989, 06/24/1986, Additional history exists Hepatitis C Screening 2002 Hepatitis B Vaccine (1 of 3 - 19+ 3-dose series) 10/27/2003 COVID-19 Vaccine (2022-24 season) 2023 Influenza Vaccine (FLU shot) (#1) 2024 HPV (Gardasil) Vaccine Aged Out No lo [...] days documented in this encounter Care Teams Precinct Police Lieutenant Relationship Specialty Start Date End Date September, Greg Leung MD [address] [place] [address] PCP - General Family Medicine 12/21/23 documented as of this encounter
[2024-06-22 06:52] LABS: Appearance Urine Clear (Clear); Bacteria Urine Automated 1+ (None Seen); Bilirubin Urine Negative (Negative); Blood Urine Negative (Negative); Cast Urine Automated 0-2 /lpf (0-2); Color Urine Dark Yellow; Epithelial Cell Urine Auto 0-2 /hpf (0-2); Glucose Urine UA Negative (Negative); Ketones Urine 1+ (Negative); Leukocyte Esterase Urine Negative (Negative); Nitrite Urine Negative (Negative); Protein Urine 1+ (Negative); Specific Gravity Urine 1.044 (1.000-1.030); Urobilinogen Urine Negative (Negative); WBC Urine Automated 0-5 /hpf (0-5); pH Urine 7.5 (4.5-7.5)
[2024-06-22 07:02] LABS: Amorphous Sediment Urine Present (None Prsent); Mucus Urine Present (None Prsent)
[2024-06-22 07:03] LABS: Calcium Oxalate Crystals Urine Present (None Prsent)
--- NOTE | 2024-06-22 08:03 | Emergency Department Note ---
ED Visit Note The patient was taken in signout from Dr. Banegas at the change of shift. Please see her note for details of the patient's presentation. Patient was pending completion of CT of the abdomen pelvis for evaluation of upper abdominal pain. In brief, the patient is a 38y/o gentleman who presents to the emergency department with left upper abdominal pain which subsequently resolved with Pepcid. Urinalysis demonstrates 3-5 RBCs and 1+ bacteria without nitrites or WBCs. Calcium oxalate crystals are present. Otherwise, lab work was unremarkable. WBC within normal limits. Hemoglobin within normal limits. Platelets within normal limits. Chemistry without metabolic acidosis. LFTs are normal including normal total bilirubin. High-sensitivity troponin 3.7, within normal limits. Lipase is normal. Due to the severity of his pain CT of the abdomen pelvis was ordered and is pending. If CT negative possible gastritis suspected. CT abdomen pelvis was completed and demonstrates gallbladder is distended showing mild wall thickening with pericholecystic minimal fat stranding mostly at the fundus. No radiodense stones are seen. Findings concerning for early cholecystitis. Upon reevaluation patient continued to feel improved with minimal residual upper abdominal discomfort. He exhibited no tenderness to palpation and negative Mcdonough sign per my assessment. For further evaluation of his CT findings gallbladder ultrasound was performed and demonstrates sludge filled gallbladder with distention and wall thickening. Per brewing technician sonographic Mcdonough sign was present. Trace pericholecystic fluid without shadowing cholelithiasis was noted. Case was discussed with Dr. Cronin, general surgery on-call. Appreciate consultation and recommendations. Following his assessment he will admit the patient to the OR for cholecystectomy. IV Zosyn ordered per recommendations. Results & Data Vital Signs Vital Signs - 24 hr 06/22/24 01:47 06/22/24 01:53 06/22/24 02:12 Temperature 36.3 C L Temperature Source Temporal Artery Scan Pulse Rate 81 75 Pulse Rate [Right Finger] Pulse Rate from SpO2 Sensor Respiratory Rate 30 H Respiratory Effort / Characteristics Non-Labored Non-Labored Respiratory Depth Normal Normal Respiratory Pattern Blood Pressure 135/89 Blood Pressure [Right Arm] Blood Pressure Mean 104 Blood Pressure Mean [Right Arm] Blood Pressure Position [Right Arm] Pulse Oximetry 100 Oxygen Delivery Method Room Air Sepsis Recent Fever Within 48 Hours No Sepsis New/Unexplained Change in Mental Status No Sepsis Action Taken by Nursing No Action Required 06/22/24 02:19 06/22/24 02:21 06/22/24 02:30 Temperature Temperature Source Pulse Rate 76 77 Pulse Rate [Right Finger] Pulse Rate from SpO2 Sensor 79 77 Respiratory Rate 15 16 Respiratory Effort / Characteristics Respiratory Depth Respiratory Pattern Blood Pressure Blood Pressure [Right Arm] Blood Pressure Mean Blood Pressure Mean [Right Arm] Blood Pressure Position [Right Arm] Pulse Oximetry 100 100 Oxygen Delivery Method Room Air Sepsis Recent Fever Within 48 Hours Sepsis New/Unexplained Change in Mental Status Sepsis Action Taken by Nursing 06/22/24 02:34 06/22/24 02:51 06/22/24 02:57 Temperature Temperature Source Pulse Rate 69 77 Pulse Rate [Right Finger] Pulse Rate from SpO2 Sensor 69 76 Respiratory Rate 15 17 Respiratory Effort / Characteristics Respiratory Depth Respiratory Pattern Blood Pressure Blood Pressure [Right Arm] Blood Pressure Mean Blood Pressure Mean [Right Arm] Blood Pressure Position [Right Arm] Pulse Oximetry 98 100 99 Oxygen Delivery Method Room Air Sepsis Recent Fever Within 48 Hours Sepsis New/Unexplained Change in Mental Status Sepsis Action Taken by Nursing 06/22/24 03:10 06/22/24 03:10 06/22/24 03:10 Temperature Temperature Source Pulse Rate Pulse Rate [Right Finger] Pulse Rate from SpO2 Sensor Respiratory Rate Respiratory Effort / Characteristics Respiratory Depth Respiratory Pattern Blood Pressure 154/92 H 154/92 H 154/92 H Blood Pressure [Right Arm] Blood Pressure Mean 119 119 119 Blood Pressure Mean [Right Arm] Blood Pressure Position [Right Arm] Pulse Oximetry Oxygen Delivery Method Sepsis Recent Fever Within 48 Hours Sepsis New/Unexplained Change in Mental Status Sepsis Action Taken by Nursing 06/22/24 03:21 06/22/24 03:36 06/22/24 04:00 Temperature Temperature Source Pulse Rate 68 71 Pulse Rate [Right Finger] Pulse Rate from SpO2 Sensor 72 71 Respiratory Rate 12 22 Respiratory Effort / Characteristics Respiratory Depth Respiratory Pattern Blood Pressure 133/85 Blood Pressure [Right Arm] Blood Pressure Mean 94 Blood Pressure Mean [Right Arm] Blood Pressure Position [Right Arm] Pulse Oximetry 99 99 Oxygen Delivery Method Sepsis Recent Fever Within 48 Hours Sepsis New/Unexplained Change in Mental Status Sepsis Action Taken by Nursing 06/22/24 04:15 06/22/24 04:21 06/22/24 04:33 Temperature Temperature Source Pulse Rate 75 66 72 Pulse Rate [Right Finger] Pulse Rate from SpO2 Sensor 77 66 72 Respiratory Rate 13 12 16 Respiratory Effort / Characteristics Respiratory Depth Respiratory Pattern Blood Pressure Blood Pressure [Right Arm] Blood Pressure Mean Blood Pressure Mean [Right Arm] Blood Pressure Position [Right Arm] Pulse Oximetry 98 94 98 Oxygen Delivery Method Sepsis Recent Fever Within 48 Hours Sepsis New/Unexplained Change in Mental Status Sepsis Action Taken by Nursing 06/22/24 04:42 06/22/24 04:54 06/22/24 04:55 Temperature Temperature Source Pulse Rate 74 80 Pulse Rate [Right Finger] Pulse Rate from SpO2 Sensor 73 82 Respiratory Rate 16 16 Respiratory Effort / Characteristics Respiratory Depth Respiratory Pattern Blood Pressure 158/88 H Blood Pressure [Right Arm] Blood Pressure Mean 110 Blood Pressure Mean [Right Arm] Blood Pressure Position [Right Arm] Pulse Oximetry 99 96 Oxygen Delivery Method Sepsis Recent Fever Within 48 Hours Sepsis New/Unexplained Change in Mental Status Sepsis Action Taken by Nursing 06/22/24 04:55 06/22/24 04:55 06/22/24 05:00 Temperature Temperature Source Pulse Rate 73 Pulse Rate [Right Finger] Pulse Rate from SpO2 Sensor 72 Respiratory Rate 16 Respiratory Effort / Characteristics Respiratory Depth Respiratory Pattern Blood Pressure 158/88 H 158/88 H Blood Pressure [Right Arm] Blood Pressure Mean 110 110 Blood Pressure Mean [Right Arm] Blood Pressure Position [Right Arm] Pulse Oximetry 95 Oxygen Delivery Method Sepsis Recent Fever Within 48 Hours Sepsis New/Unexplained Change in Mental Status Sepsis Action Taken by Nursing 06/22/24 05:00 06/22/24 05:00 06/22/24 05:00 Temperature Temperature Source Pulse Rate Pulse Rate [Right Finger] Pulse Rate from SpO2 Sensor Respiratory Rate Respiratory Effort / Characteristics Respiratory Depth Respiratory Pattern Blood Pressure 164/90 H 164/90 H 164/90 H Blood Pressure [Right Arm] Blood Pressure Mean 108 108 108 Blood Pressure Mean [Right Arm] Blood Pressure Position [Right Arm] Pulse Oximetry Oxygen Delivery Method Sepsis Recent Fever Within 48 Hours Sepsis New/Unexplained Change in Mental Status Sepsis Action Taken by Nursing 06/22/24 05:27 06/22/24 05:30 06/22/24 05:30 Temperature Temperature Source Pulse Rate 75 Pulse Rate [Right Finger] Pulse Rate from SpO2 Sensor 76 Respiratory Rate 16 Respiratory Effort / Characteristics Respiratory Depth Respiratory Pattern Blood Pressure 167/86 H 167/86 H Blood Pressure [Right Arm] Blood Pressure Mean 119 119 Blood Pressure Mean [Right Arm] Blood Pressure Position [Right Arm] Pulse Oximetry 96 Oxygen Delivery Method Sepsis Recent Fever Within 48 Hours Sepsis New/Unexplained Change in Mental Status Sepsis Action Taken by Nursing 06/22/24 05:36 06/22/24 05:42 06/22/24 06:16 Temperature Temperature Source Pulse Rate 78 73 70 Pulse Rate [Right Finger] Pulse Rate from SpO2 Sensor 79 73 Respiratory Rate 14 17 Respiratory Effort / Characteristics Respiratory Depth Respiratory Pattern Blood Pressure Blood Pressure [Right Arm] Blood Pressure Mean Blood Pressure Mean [Right Arm] Blood Pressure Position [Right Arm] Pulse Oximetry 97 97 Oxygen Delivery Method Sepsis Recent Fever Within 48 Hours Sepsis New/Unexplained Change in Mental Status Sepsis Action Taken by Nursing 06/22/24 06:21 06/22/24 07:51 06/22/24 09:03 Temperature Temperature Source Pulse Rate 69 75 71 Pulse Rate [Right Finger] Pulse Rate from SpO2 Sensor 70 74 71 Respiratory Rate 17 20 19 Respiratory Effort / Characteristics Respiratory Depth Respiratory Pattern Blood Pressure 133/84 144/79 H Blood Pressure [Right Arm] Blood Pressure Mean 100 100 Blood Pressure Mean [Right Arm] Blood Pressure Position [Right Arm] Pulse Oximetry 97 99 97 Oxygen Delivery Method Sepsis Recent Fever Within 48 Hours Sepsis New/Unexplained Change in Mental Status Sepsis Action Taken by Nursing 06/22/24 09:30 06/22/24 13:03 06/22/24 13:37 Temperature 37.1 C Temperature Source Oral Pulse Rate 72 Pulse Rate [Right Finger] 80 Pulse Rate from SpO2 Sensor 74 Respiratory Rate 20 18 20 Respiratory Effort / Characteristics Non-Labored Respiratory Depth Normal Respiratory Pattern Regular Blood Pressure 130/78 143/82 H Blood Pressure [Right Arm] 148/78 H Blood Pressure Mean 93 102 Blood Pressure Mean [Right Arm] 101 Blood Pressure Position [Right Arm] Semi-fowlers Pulse Oximetry 97 97 99 Oxygen Delivery Method Room Air Sepsis Recent Fever Within 48 Hours Sepsis New/Unexplained Change in Mental Status Sepsis Action Taken by Nursing Laboratory Data Attestation: I reviewed the patient's lab results. 06/22/24 02:34 06/22/24 02:34 Lab Results 06/22/24 06/22/24 Range/Units 02:34 Unknown WBC 5.13 (4.8-10.8) K/ul RBC 4.92 (4.70-6.10) M/uL Hgb 14.7 (14.0-18.0) g/dl Hct 40.4 L (42.0-52.0) % MCV 82.1 (80.0-100.0) fL MCH 29.9 (25.0-34.0) pg MCHC 36.4 H (32.0-36.0) g/dL RDW Std Deviation 35.2 L (36.4-46.3) fL RDW Coeff of Jenelle 11.9 (11.5-14.5) % Plt Count 210 (130-400) K/uL MPV 9.4 (9.4-12.4) fL Immature Gran % (Auto) 0.4 % Neut % (Auto) 51.9 % Lymph % (Auto) 32.7 % [place] % (Auto) 14.0 % Eos % (Auto) 0.8 % Baso % (Auto) 0.2 % Neut # (Auto) 2.66 (1.40-6.50) K/uL Lymph # (Auto) 1.68 (1.20-3.40) K/uL [place] # (Auto) 0.72 H (0.11-0.59) K/uL Eos # (Auto) 0.04 (0.00-0.50) K/uL Baso # (Auto) 0.01 (0.00-0.20) K/uL Immature Gran # (Auto) 0.02 (0.01-0.20) K/uL Sodium 137 (136-145) mmol/L Potassium 3.7 (3.5-5.1) mmol/L Chloride 104 (98-107) mmol/L Carbon Dioxide 24 (21-32) mmol/L Anion Gap 9 (3-11) BUN 14 (6-23) mg/dl Creatinine 0.86 (0.6-1.4) mg/dl Est Cr Clr Drug Dosing 119.1 ml/min eGFR 112.96 BUN/Creatinine Ratio 16.3 (10-20) Glucose 132 H (70-99(Fasting)) mg/dl Calcium 9.4 (8.6-10.3) mg/dl Total Bilirubin 0.5 (0.2-1.0) mg/dl AST 22 (13-39) U/L ALT 19 (7-52) U/L Alkaline Phosphatase 62 (34-104) U/L Troponin I High Sens 3.7 (0-20) pg/ml Total Protein 6.9 (6.0-8.3) gm/dl Albumin 4.1 (3.4-5.0) gm/dl Globulin 2.8 (2.5-4.0) gm/dl Albumin/Globulin Ratio 1.5 (0.9-2) Lipase 25 (11-82) U/L Urine Color Dark Yellow Urine Appearance Clear (Clear) Urine pH 7.5 (4.5-7.5) Ur Specific [place] 1.044 H (1.000-1.030) Urine Protein 1+ H (Negative) Urine Glucose (UA) Negative (Negative) Urine Ketones 1+ H (Negative) Urine Blood Negative (Negative) Urine Nitrite Negative (Negative) Urine Bilirubin Negative (Negative) Urine Urobilinogen Negative (Negative) Ur Leukocyte Esterase Negative (Negative) Urine WBC (Auto) 0-5 (0-5) /hpf Urine RBC (Auto) 3-5 H (0-2) /hpf U Hyaline Cast (Auto) 0-2 (0-2) /lpf U Epithel Cells (Auto) 0-2 (0-2) /hpf Urine Bacteria (Auto) 1+ H (None Seen) Calcium Oxalate Crystal Present A (None Prsent) Amorphous Sediment Present A (None Prsent) Urine Mucus Present A (None Prsent) Administered Medications Lactated Ringer's (Lr) 1,000 mls @ 15 mls/hr IV .Q24H LARISSA Stop: 06/23/24 13:44 Last Admin: 06/22/24 13:49 Dose: 15 mls/hr Documented By: PITA Discontinued Medications Bupivacaine HCl/Epinephrine Bitart (Bupivacaine/Epinephrine 0.25% 1:200,000 30 Ml Vial) Confirm Administered Dose 30 ml .ROUTE .STK-MED ONE Stop: 06/22/24 13:54 Last Admin: 06/22/24 15:25 Dose: 20 ml Documented By: FRANK Famotidine (Pepcid 20mg Iv Push) 20 mg in 5 mls @ 2.5 mls/min IV NOW STA Stop: 06/22/24 04:51 Last Admin: 06/22/24 04:53 Dose: 2.5 mls/min Documented By: DEANN Sodium Chloride (Nss) 500 mls @ 999 mls/hr IV .Q31M ONE Stop: 06/22/24 05:20 Last Infusion: 06/22/24 05:47 Dose: Infused Documented By: Admin: 06/22/24 04:53 Dose: 999 mls/hr Documented By: DEANN Sodium Chloride (Nss) 500 mls @ 999 mls/hr IV .Q31M ONE Stop: 06/22/24 07:03 Last Infusion: 06/22/24 13:26 Dose: Infused Documented By: Admin: 06/22/24 07:57 Dose: 999 mls/hr Documented By: Piperacillin Sod/Tazobactam Sod (Zosyn) 4.5 gm in 100 mls @ 200 mls/hr IV NOW ONE; Protocol Stop: 06/22/24 12:48 Last Infusion: 06/22/24 13:26 Dose: Infused Documented By: Admin: 06/22/24 12:29 Dose: 200 mls/hr Documented By: ALBERTO Lorazepam (Lorazepam 1 Mg/1 Ml Syr Ed Inj Use) Confirm Administered Dose 1 mg .ROUTE .STK-MED ONE Stop: 06/22/24 02:33 Last Admin: 06/22/24 02:33 Dose: 1 mg Documented By: DEANN Lorazepam (Lorazepam 1 Mg/1 Ml Syr Ed Inj Use) 1 mg IV ONE STA Stop: 06/22/24 02:35 Last Admin: 06/22/24 02:35 Dose: Not Given Documented By: DEANN Ondansetron HCl (Ondansetron Inj 2 Mg/Ml 2 Ml Vial) Confirm Administered Dose 4 mg .ROUTE .STK-MED ONE Stop: 06/22/24 04:03 Last Admin: 06/22/24 04:03 Dose: 4 mg Documented By: DEANN Imaging Data Radiologist's Impression: Abdomen/Pelvis CT 06/22/24 07:05 EXAM: CT abd pelvis wo con CLINICAL HISTORY: eval for a left sided kidney stone. TECHNIQUE: A CT scan of the abdomen and pelvis was performed without IV contrast. Coronal and sagittal reconstructive images were also obtained. One of the following dose reduction techniques were utilized for this exam: Automated exposure control, adjustment of the mA and/or kV according to patient size, and use of iterative reconstruction. COMPARISON: None. FINDINGS: The gallbladder is seen distended measuring about 8.5 x 4.5 cm. No radiodense stones could be identified. There is mild wall thickening with pericholecystic minimal fat stranding much evident at the fundus region. The kidneys are normal in size and shape. No calculi, masses, or hydronephrosis. No ureteric stones or evident hydroureter was observed admitted The liver is normal in size. No diffuse parenchymal abnormality. The intrahepatic biliary radicals and the bile ducts are normal. Left hepatic lobe hypodense focal lesion measures 9 mm. Mildly enlarged spleen. No focal lesion was observed. The pancreas and adrenal glands are unremarkable. Multiple small mesenteric lymph nodes were observed the largest measures 10 x 7 mm. Colonic diverticulosis. No diverticulitis. The visualized small bowel loops are unremarkable. No CT evidence of acute appendicitis. The urinary bladder shows a slightly thickened wall measures up to 4 mm. No stones, mass, or diverticula were observed. The prostate was unremarkable. No evidence of pelvic lymphadenopathy. No ascites. A scan through the lower chest reveals a right lung lower lobe nodule measuring about 5.5 mm. L1 small sclerotic focus was observed likely a bone island. IMPRESSION: 1. The gallbladder is distended showing mild wall thickening with pericholecystic minimal fat stranding much evident at the fundus region. No radiodense stones could be identified. Findings are concerning for early cholecystitis. Clinical correlation and further ultrasound evaluation are recommended. 2. No renal stones or hydronephrosis. 3. The left hepatic lobe hypodense focal lesion measures 9 mm. This could be a hepatic cyst or a hemangioma. If clinically needed, further evaluation with triphasic CT/MRI may be recommended. 4. Mild splenomegaly. 5. Multiple small mesenteric lymph nodes were observed the largest measures 10 x 7 mm. 6. Colonic diverticulosis. No diverticulitis. 7. The urinary bladder shows a slightly thickened wall that measures up to 4 mm. Urine analysis correlation is advised. 8. A right lung lower lobe nodule measures about 5.5 mm. According to the Fleischner Society pulmonary nodule recommendations for low-risk patients no routine follow-up is required and for high-risk patients optional CT at 12 months is advised. Electronically signed by Eldon Byrnes 06-22-2024 09:09 AM Gallbladder Ultrasound 06/22/24 09:17 ABDOMINAL ULTRASOUND, RIGHT UPPER QUADRANT HISTORY: Acute right upper quadrant abdominal pain upper abd pain. COMPARISON: CT 06/22/2024 FINDINGS: Pancreas: The pancreas is obscured by bowel gas. Liver: Unremarkable. Gallbladder: Nonspecific borderline gallbladder wall thickening measures up to 4 mm. Trace pericholecystic fluid. Layering gallbladder sludge. Distention measuring up to 11 cm. Positive sonographic Mcdonough sign. No shadowing gallstones identified by ultrasound. CBD: 4 mm, not well seen. Right kidney: No hydronephrosis. IMPRESSION: 1. Sludge-filled gallbladder is distended with wall thickening. Additionally, the sonographic Mcdonough sign was reported as positive and there is trace pericholecystic fluid without shadowing cholelithiasis identified by ultrasound. Findings may represent acute cholecystitis within the appropriate clinical setting. Nuclear medicine hepatobiliary scan may also be considered. 2. No biliary ductal dilation. ACT 112: Negative or not required by law. Electronically signed by: Eduardo Huynh M.D. 06/22/2024 10:09 AM Impression Acute cholecystitis
--- NOTE | 2024-06-22 09:09 | CT Scan Report ---
EXAM: CT abd pelvis wo con CLINICAL HISTORY: eval for a left sided kidney stone. TECHNIQUE: A CT scan of the abdomen and pelvis was performed without IV contrast. Coronal and sagittal reconstructive images were also obtained. One of the following dose reduction techniques were utilized for this exam: Automated exposure control, adjustment of the mA and/or kV according to patient size, and use of iterative reconstruction. COMPARISON: None. FINDINGS: The gallbladder is seen distended measuring about 8.5 x 4.5 cm. No radiodense stones could be identified. There is mild wall thickening with pericholecystic minimal fat stranding much evident at the fundus region. The kidneys are normal in size and shape. No calculi, masses, or hydronephrosis. No ureteric stones or evident hydroureter was observed admitted The liver is normal in size. No diffuse parenchymal abnormality. The intrahepatic biliary radicals and the bile ducts are normal. Left hepatic lobe hypodense focal lesion measures 9 mm. Mildly enlarged spleen. No focal lesion was observed. The pancreas and adrenal glands are unremarkable. Multiple small mesenteric lymph nodes were observed the largest measures 10 x 7 mm. Colonic diverticulosis. No diverticulitis. The visualized small bowel loops are unremarkable. No CT evidence of acute appendicitis. The urinary bladder shows a slightly thickened wall measures up to 4 mm. No stones, mass, or diverticula were observed. The prostate was unremarkable. No evidence of pelvic lymphadenopathy. No ascites. A scan through the lower chest reveals a right lung lower lobe nodule measuring about 5.5 mm. L1 small sclerotic focus was observed likely a bone island. IMPRESSION: 1. The gallbladder is distended showing mild wall thickening with pericholecystic minimal fat stranding much evident at the fundus region. No radiodense stones could be identified. Findings are concerning for early cholecystitis. Clinical correlation and further ultrasound evaluation are recommended. 2. No renal stones or hydronephrosis. 3. The left hepatic lobe hypodense focal lesion measures 9 mm. This could be a hepatic cyst or a hemangioma. If clinically needed, further evaluation with triphasic CT/MRI may be recommended. 4. Mild splenomegaly. 5. Multiple small mesenteric lymph nodes were observed the largest measures 10 x 7 mm. 6. Colonic diverticulosis. No diverticulitis. 7. The urinary bladder shows a slightly thickened wall that measures up to 4 mm. Urine analysis correlation is advised. 8. A right lung lower lobe nodule measures about 5.5 mm. According to the Fleischner Society pulmonary nodule recommendations for low-risk patients no routine follow-up is required and for high-risk patients optional CT at 12 months is advised. Electronically signed by Eldon Byrnes 06-22-2024 09:09 AM
--- NOTE | 2024-06-22 10:11 | Ultrasound Report ---
ABDOMINAL ULTRASOUND, RIGHT UPPER QUADRANT HISTORY: Acute right upper quadrant abdominal pain upper abd pain. COMPARISON: CT 06/22/2024 FINDINGS: Pancreas: The pancreas is obscured by bowel gas. Liver: Unremarkable. Gallbladder: Nonspecific borderline gallbladder wall thickening measures up to 4 mm. Trace pericholec ystic fluid. Layering gallbladder sludge. Distention measuring up to 11 cm. Positive sonographic Mur[place] hy sign. No shadowing gallstones identified by ultrasound. CBD: 4 mm, not well seen. Right kidney: No hydronephrosis. IMPRESSION: 1. Sludge-filled gallbladder is distended with wall thickening. Additionally, the sonographic Mcdonough sign was reported as positive and there is trace pericholecystic fluid without shadowing cholelithias is identified by ultrasound. Findings may represent acute cholecystitis within the appropriate clinic al setting. Nuclear medicine hepatobiliary scan may also be considered. 2. No biliary ductal dilation. ACT 112: Negative or not required by law. Electronically signed by: Eduardo Huynh M.D. 06/22/2024 10:09 AM
[2024-06-22] MEDS: PIPERACILLIN/TAZOBACTAM 4.5 GM/100 ML BAG IV ONE (12:29)
--- NOTE | 2024-06-22 12:33 | History & Physical Report ---
Date of Service June 22, 2024 Assessment & Plan (1) Acute cholecystitis: Plan: 38-year-old gentleman with acute cholecystitis. Discussed the risks and benefits of laparoscopic cholecystectomy. All his questions were answered and he is agreeable to proceed. Consent has been obtained. We will take him to the operating room at the earliest convenience. History of Present Illness Primary Care Provider: Greg Bateman MD 38-year-old gentleman presents with a week history of intermittent pain after eating in the epigastric region and bilateral upper quadrants. This radiates to his back. He did have nausea multiple times. It was improving and he ate enchiladas yesterday and it worsens. Continues through to this morning. No fevers or chills. CT and ultrasound demonstrate gallbladder sludge and pericholecystic fluid with early acute cholecystitis. Allergies Allergy/AdvReac Type Severity Reaction Status Date / Time No Known Allergies Allergy Unverified 05/20/17 01:58 Home Medications Medication Instructions Recorded Confirmed Type doxycycline hyclate 100 mg capsule 100 mg PO BID 06/22/24 06/22/24 History Past Med/Surg History Problem List (Updated 06/22/24 @ 12:34 by Cal Cronin MD) Acute cholecystitis Social History Smoking Status: Never smoker Feels Safe at Home: Yes Review of Systems Review of Systems: All systems reviewed & are unremarkable except as noted in HPI & below Physical Exam Constitutional: WD/WN, vitals as above Eyes: PERRL, conjunctivae normal, anicteric sclerae Neck: trachea midline, no thyromegaly Respiratory: normal respiratory effort; no respiratory distress and no labored breathing Cardiovascular: Rate/Rhythm: regular rate and regular rhythm Gastrointestinal (Abdomen): Inspection/Auscultation: abdomen normal to inspection; abdomen not distended Percussion/Palpation: + abdomen tender ( Right upper quadrant) and abdomen soft; no guarding and abdomen not rigid Skin: no rashes, warm and dry Psychiatric: A+Ox3, euthymic affect Results & Data Results & Data Vital Signs (Past 12 Hours) Vital Signs Temp Pulse Resp BP Pulse Ox O2 Del Method 06/22/24 09:30 72 20 130/78 97 06/22/24 09:03 71 19 144/79 H 97 06/22/24 07:51 75 20 133/84 99 06/22/24 06:21 69 17 97 06/22/24 06:16 70 06/22/24 05:42 73 17 97 06/22/24 05:36 78 14 97 06/22/24 05:30 167/86 H 06/22/24 05:30 167/86 H 06/22/24 05:27 75 16 96 06/22/24 05:00 164/90 H 06/22/24 05:00 164/90 H 06/22/24 05:00 164/90 H 06/22/24 05:00 73 16 95 06/22/24 04:55 158/88 H 06/22/24 04:55 158/88 H 06/22/24 04:55 158/88 H 06/22/24 04:54 80 16 96 06/22/24 04:42 74 16 99 06/22/24 04:33 72 16 98 06/22/24 04:21 66 12 94 06/22/24 04:15 75 13 98 06/22/24 04:00 133/85 06/22/24 03:36 71 22 99 06/22/24 03:21 68 12 99 06/22/24 03:10 154/92 H 06/22/24 03:10 154/92 H 06/22/24 03:10 154/92 H 06/22/24 02:57 77 17 99 06/22/24 02:51 69 15 100 06/22/24 02:34 98 Room Air 06/22/24 02:30 77 16 100 06/22/24 02:21 76 15 100 06/22/24 02:19 Room Air 06/22/24 02:12 75 06/22/24 01:53 36.3 C L 81 30 H 135/89 100 Room Air Laboratory Results 06/22/24 06/22/24 Range/Units Unknown 02:34 WBC 5.13 (4.8-10.8) K/ul RBC 4.92 (4.70-6.10) M/uL Hgb 14.7 (14.0-18.0) g/dl Hct 40.4 L (42.0-52.0) % MCV 82.1 (80.0-100.0) fL MCH 29.9 (25.0-34.0) pg MCHC 36.4 H (32.0-36.0) g/dL RDW Std Deviation 35.2 L (36.4-46.3) fL RDW Coeff of Jenelle 11.9 (11.5-14.5) % Plt Count 210 (130-400) K/uL MPV 9.4 (9.4-12.4) fL Immature Gran % (Auto) 0.4 % Neut % (Auto) 51.9 % Lymph % (Auto) 32.7 % [place] % (Auto) 14.0 % Eos % (Auto) 0.8 % Baso % (Auto) 0.2 % Neut # (Auto) 2.66 (1.40-6.50) K/uL Lymph # (Auto) 1.68 (1.20-3.40) K/uL [place] # (Auto) 0.72 H (0.11-0.59) K/uL Eos # (Auto) 0.04 (0.00-0.50) K/uL Baso # (Auto) 0.01 (0.00-0.20) K/uL Immature Gran # (Auto) 0.02 (0.01-0.20) K/uL Sodium 137 (136-145) mmol/L Potassium 3.7 (3.5-5.1) mmol/L Chloride 104 (98-107) mmol/L Carbon Dioxide 24 (21-32) mmol/L Anion Gap 9 (3-11) BUN 14 (6-23) mg/dl Creatinine 0.86 (0.6-1.4) mg/dl Est Cr Clr Drug Dosing 119.1 ml/min eGFR 112.96 BUN/Creatinine Ratio 16.3 (10-20) Glucose 132 H (70-99(Fasting)) mg/dl Calcium 9.4 (8.6-10.3) mg/dl Total Bilirubin 0.5 (0.2-1.0) mg/dl AST 22 (13-39) U/L ALT 19 (7-52) U/L Alkaline Phosphatase 62 (34-104) U/L Troponin I High Sens 3.7 (0-20) pg/ml Total Protein 6.9 (6.0-8.3) gm/dl Albumin 4.1 (3.4-5.0) gm/dl Globulin 2.8 (2.5-4.0) gm/dl Albumin/Globulin Ratio 1.5 (0.9-2) Lipase 25 (11-82) U/L Urine Color Dark Yellow Urine Appearance Clear (Clear) Urine pH 7.5 (4.5-7.5) Ur Specific [place] 1.044 H (1.000-1.030) Urine Protein 1+ H (Negative) Urine Glucose (UA) Negative (Negative) Urine Ketones 1+ H (Negative) Urine Blood Negative (Negative) Urine Nitrite Negative (Negative) Urine Bilirubin Negative (Negative) Urine Urobilinogen Negative (Negative) Ur Leukocyte Esterase Negative (Negative) Urine WBC (Auto) 0-5 (0-5) /hpf Urine RBC (Auto) 3-5 H (0-2) /hpf U Hyaline Cast (Auto) 0-2 (0-2) /lpf U Epithel Cells (Auto) 0-2 (0-2) /hpf Urine Bacteria (Auto) 1+ H (None Seen) Calcium Oxalate Crystal Present A (None Prsent) Amorphous Sediment Present A (None Prsent) Urine Mucus Present A (None Prsent) Diagnostic Findings ABDOMINAL ULTRASOUND, RIGHT UPPER QUADRANT HISTORY: Acute right upper quadrant abdominal pain upper abd pain. COMPARISON: CT 06/22/2024 FINDINGS: Pancreas: The pancreas is obscured by bowel gas. Liver: Unremarkable. Gallbladder: Nonspecific borderline gallbladder wall thickening measures up to 4 mm. Trace pericholecystic fluid. Layering gallbladder sludge. Distention measuring up to 11 cm. Positive sonographic Mcdonough sign. No shadowing gallstones identified by ultrasound. CBD: 4 mm, not well seen. Right kidney: No hydronephrosis. IMPRESSION: 1. Sludge-filled gallbladder is distended with wall thickening. Additionally, the sonographic Mcdonough sign was reported as positive and there is trace pericholecystic fluid without shadowing cholelithiasis identified by ultrasound. Findings may represent acute cholecystitis within the appropriate clinical setting. Nuclear medicine hepatobiliary scan may also be considered. 2. No biliary ductal dilation.
[2024-06-22] MEDS: LACTATED RINGER'S 1,000 ML IV SCH (13:49)
[2024-06-22] MEDS ORDERED: ONDANSETRON INJ 2 MG/ML 2 ML VIAL ONE (14:09)
[2024-06-22] MEDS ORDERED: DEXAMETHASONE SOD INJ 4 MG/ML VIAL ONE (14:09)
[2024-06-22] MEDS ORDERED: PROPOFOL IV EMULSION 10 MG/ML 20 ML VIAL IV ONE (14:09)
[2024-06-22] MEDS ORDERED: LIDOCAINE 2% 2 ML VIAL/AMP(20MG/ML) INFIL ONE (14:09)
[2024-06-22] MEDS ORDERED: ROCURONIUM BROMIDE 10 MG/ML 5 ML VIAL IV ONE (14:09)
--- NOTE | 2024-06-22 14:35 | Anesthesiology Consultation ---
Date of Service June 22, 2024 Assessment & Plan ASA ASA1 Proposed Anesthesia Anesthesia Type: General Risk / Benefits Reviewed With: PT / POA / Parent / Guardian, Accepts Plan and Informed Consent Obtained History Surgery Operation Date: 06/22/24 14:05 Proposed Procedures p Laparoscopic Cholecystectomy - Cal Cronin MD Height/Weight Height: 5 ft 10 in Weight: 87 kg Allergies Allergy/AdvReac Type Severity Reaction Status Date / Time No Known Allergies Allergy Unverified 05/20/17 01:58 Medications Home Medications Medication Instructions Recorded Confirmed Last Taken doxycycline hyclate 100 mg capsule 100 mg PO BID 06/22/24 06/22/24 Unknown Active Medications Generic Name Dose Route Start Last Admin Trade Name Freq PRN Reason Stop Dose Admin Lactated Ringer's 1,000 mls @ 15 mls/hr 06/22/24 13:45 06/22/24 13:49 Lr IV 06/23/24 13:44 15 mls/hr .Q24H LARISSA Administration NPO Date Last Intake of Fluids: 06/22/24 Time Last Intake of Fluids: 10:00 Last Intake of Fluids Comment: ice chips Date Last Intake of Solids: 06/21/24 Time Last Intake of Solids: 19:00 Exercise / Class Metabolic Activity II 4-5 Yardwork/Stairs/Walk up hill Past Anesthesia History No Hx of Anesthesia Complications and No Family Hx of Anesthesia Complications History of PONV No Hx of PONV and No Hx of Motion Sickness Social History Smoking Status: Never smoker Review of Systems denies fever/cough/ colds/ chest pain/ SOB/ RAS denies RAS Physical Exam Vital Signs Last Vital Signs Temp 37.1 C 06/22/24 13:37 Pulse 80 06/22/24 13:37 Resp 20 06/22/24 13:37 BP 148/78 H 06/22/24 13:37 Pulse Ox 99 06/22/24 13:37 O2 Del Method Room Air 06/22/24 13:37 ENMT Mouth: no TMJ abnormality and no dentition abnormality Thyromental Distance: > or= 3.5 Finger Breadths Mallampati Class: II Neck neck extension not limited Respiratory normal respiratory effort; no respiratory distress Auscultation: lungs clear to auscultation bilaterally Cardiovascular Rate/Rhythm: regular rate and regular rhythm Neurologic moves all extremities Psychiatric Orientation: alert and oriented x 3 Testing Laboratory Results 06/22/24 02:34 06/22/24 02:34 Urine Color Dark Yellow 06/22/24 Unknown Urine Appearance Clear (Clear) 06/22/24 Unknown Urine pH 7.5 (4.5-7.5) 06/22/24 Unknown Ur Specific [place] 1.044 (1.000-1.030) H 06/22/24 Unknown Urine Protein 1+ (Negative) H 06/22/24 Unknown Urine Glucose (UA) Negative (Negative) 06/22/24 Unknown Urine Ketones 1+ (Negative) H 06/22/24 Unknown Urine Nitrite Negative (Negative) 06/22/24 Unknown Ur Leukocyte Esterase Negative (Negative) 06/22/24 Unknown Urine WBC (Auto) 0-5 /hpf (0-5) 06/22/24 Unknown Urine RBC (Auto) 3-5 /hpf (0-2) H 06/22/24 Unknown U Hyaline Cast (Auto) 0-2 /lpf (0-2) 06/22/24 Unknown U Epithel Cells (Auto) 0-2 /hpf (0-2) 06/22/24 Unknown Urine Bacteria (Auto) 1+ (None Seen) H 06/22/24 Unknown
[2024-06-22] MEDS ORDERED: ePHEDrine sulfate 50 MG/ML AMP IV PRN (14:37)
[2024-06-22] MEDS ORDERED: fentaNYL citrate PF 100 MCG/2 ML VIAL IV PRN (14:37)
[2024-06-22] MEDS ORDERED: HYDROmorphone INJ 1 MG/ML SYRINGE IV PRN (14:37)
[2024-06-22] MEDS ORDERED: ONDANSETRON INJ 2 MG/ML 2 ML VIAL IV PRN ×2 (14:37→16:56)
[2024-06-22] MEDS ORDERED: ATROPINE SULFATE 0.1 MG/ML 10ML SYR IV PRN (14:37)
[2024-06-22] MEDS ORDERED: MIDAZOLAM HCL 1 MG/ML 2ML VIAL ONE (14:46)
[2024-06-22] MEDS ORDERED: fentaNYL citrate PF 100 MCG/2 ML VIAL ONE (14:46)
[2024-06-22] MEDS ORDERED: KETAMINE HCL 10MG/ML SYR ONE (15:10)
[2024-06-22] MEDS ORDERED: HYDROmorphone INJ 2 MG/ML SYR/VIAL ONE (15:10)
[2024-06-22] MEDS ORDERED: ePHEDrine sulfate 50 MG/ML AMP ONE (15:19)
[2024-06-22] MEDS ORDERED: PHENYLEPHRINE HCL 10 MG/ML VIAL ONE (15:20)
[2024-06-22] MEDS ORDERED: SUGAMMADEX SODIUM 200 MG/2 ML VIAL IV ONE (15:22)
[2024-06-22] MEDS: BUPIVACAINE/EPINEPHRINE 0.25% 1:200,000 30 ML VIAL ONE (15:25)
--- NOTE | 2024-06-22 16:00 | Post Operative Brief Note ---
Immediate Post Op Note Date of Surgery June 22, 2024 Pre & Post Diagnosis Operation Date: 06/22/24 14:05 Pre-Op Diagnosis: Acute cholecystitis Post-Op Diagnosis: Acute cholecystitis; Umbilical Hernia I identified the patient and participated in the time-out.: Yes Procedure Operation Date: 06/22/24 14:05 Actual Procedures p Laparoscopic Cholecystectomy(Not Applicable) - Cal Cronin MD Surgeon Cal Cronin MD Aircraft Pilot None Estimated Blood Loss 5 Findings Consistent with Post-Op Diagnosis
--- NOTE | 2024-06-22 16:02 | Operative Report ---
Post Operative Report Pre & Post Diagnosis Operation Date: 06/22/24 14:05 Pre-Op Diagnosis: Acute cholecystitis Post-Op Diagnosis: Acute cholecystitis; Umbilical Hernia I identified the patient and participated in the time-out.: Yes Procedure Operation Date: 06/22/24 14:05 Actual Procedures p Laparoscopic Cholecystectomy(Not Applicable) - Cal Cronin MD Umbilical hernia repair Surgeon Cal Cronin MD Production Estimator None Estimated Blood Loss 5 Findings Consistent with Post-Op Diagnosis acute gangrenous cholecystitis; 1 cm umbilical hernia Specimens gallbladder Drains none Anesthesia Type General Complications none Description of Procedure the patient was taken to the operating room, and placed supine on the operating table. A timeout was performed, perioperative antibiotics were administered, SCD boots were placed. After adequate anesthesia and analgesia was obtained, the abdomen was prepped and draped in the normal sterile fashion. Local anesthetic was injected into and around the proposed incision sites. An incision was made with a 15 blade scalpel in the supraumbilical region and carried down to the level of the fascia. a small hernia was identified and was dissected free circumferentially. The hernia sac was excised, The fascia was grasped with a trach hook, and a varies needle was used to enter the abdominal cavity. The abdomen was insufflated to a pressure of 15 mmHg, and a 11 mm trocar was placed in this location, through the hernia. A 10 mm, 30 degree laparoscope was placed into the abdominal cavity, and the abdomen was surveyed. the gallbladder was distended, taut, and gangrenous. Two 5 mm trochars were placed along the right costal margin, and one 5 mm trocar was placed in the subxiphoid region under direct visualization. The gallbladder was grasped and retracted cephalad and laterally, exposing the triangle of [place]. Dissection began in the triangle with a combination of blunt dissection with the [place] dissector, and judicious use of the hook cautery. The cystic duct and cystic artery were dissected free circumferentially, and a critical view of safety was obtained. The cystic duct and cystic artery were clipped and transected, and the gallbladder was removed from the gallbladder fossa with the hook cautery. The camera was switched to a 5 mm, the gallbladder was placed in an Endo Catch bag, and removed via the supraumbilical port site. The camera was switched back to the 10 mm camera, and the abdomen was surveyed again. Hemostasis was checked and attended, and was excellent. The abdomen was copiously irrigated and suctioned free. Again hemostasis was checked and was excellent. All trochars were removed under direct visualization. The abdomen was desufflated. The fascia in the 11 mm Hernia site was closed with a 0 Prolene suture. The skin was closed with a running 4-0 Monocryl subcuticular stitch. Dermabond was applied. The patient tolerated the procedure without complication, and was transferred in stable condition to the PACU. All instrument, needle, and sponge counts were correct at the end of the case. I attest to the content of the Intraoperative Record and any orders documented therein. Any exceptions are noted below.
--- NOTE | 2024-06-22 16:40 | Anesthesiology Progress Note ---
Date of Service June 22, 2024 Anesthesia Post Procedure Vital Signs Vital Signs: Temp Pulse Pulse Pulse Resp BP BP 06/22/24 16:35 36.8 C 99 H 22 127/87 06/22/24 16:25 94 H 13 149/86 H 06/22/24 16:15 98 H 15 149/96 H 06/22/24 16:07 36.6 C 101 H 23 152/87 H 06/22/24 13:37 37.1 C 80 20 06/22/24 13:03 18 143/82 H 06/22/24 09:30 72 20 130/78 06/22/24 09:03 71 19 144/79 H 06/22/24 07:51 75 20 133/84 06/22/24 06:21 69 17 06/22/24 06:16 70 06/22/24 05:42 73 17 06/22/24 05:36 78 14 06/22/24 05:30 167/86 H 06/22/24 05:30 167/86 H 06/22/24 05:27 75 16 06/22/24 05:00 164/90 H 06/22/24 05:00 164/90 H 06/22/24 05:00 164/90 H 06/22/24 05:00 73 16 06/22/24 04:55 158/88 H 06/22/24 04:55 158/88 H 06/22/24 04:55 158/88 H 06/22/24 04:54 80 16 06/22/24 04:42 74 16 06/22/24 04:33 72 16 06/22/24 04:21 66 12 06/22/24 04:15 75 13 06/22/24 04:00 133/85 06/22/24 03:36 71 22 06/22/24 03:21 68 12 06/22/24 03:10 154/92 H 06/22/24 03:10 154/92 H 06/22/24 03:10 154/92 H 06/22/24 02:57 77 17 06/22/24 02:51 69 15 06/22/24 02:34 06/22/24 02:30 77 16 06/22/24 02:21 76 15 06/22/24 02:19 06/22/24 02:12 75 06/22/24 01:53 36.3 C L 81 30 H 135/89 BP Pulse Ox O2 Del Method O2 Flow Rate 06/22/24 16:35 97 Room Air 06/22/24 16:25 97 Room Air 06/22/24 16:15 98 Room Air 06/22/24 16:07 100 Oxymask 5 06/22/24 13:37 148/78 H 99 Room Air 06/22/24 13:03 97 06/22/24 09:30 97 06/22/24 09:03 97 06/22/24 07:51 99 06/22/24 06:21 97 06/22/24 06:16 06/22/24 05:42 97 06/22/24 05:36 97 06/22/24 05:30 06/22/24 05:30 06/22/24 05:27 96 06/22/24 05:00 06/22/24 05:00 06/22/24 05:00 06/22/24 05:00 95 06/22/24 04:55 06/22/24 04:55 06/22/24 04:55 06/22/24 04:54 96 06/22/24 04:42 99 06/22/24 04:33 98 06/22/24 04:21 94 06/22/24 04:15 98 06/22/24 04:00 06/22/24 03:36 99 06/22/24 03:21 99 06/22/24 03:10 06/22/24 03:10 06/22/24 03:10 06/22/24 02:57 99 06/22/24 02:51 100 06/22/24 02:34 98 Room Air 06/22/24 02:30 100 06/22/24 02:21 100 06/22/24 02:19 Room Air 06/22/24 02:12 06/22/24 01:53 100 Room Air Pain Intensity Upper Abdomen: Pain Intensity: 3 Transfer of Care Handoff Completed per policy Notes Mental Status: alert / awake / arousable and participated in evaluation Patient Amnestic to Procedure: Yes Nausea / Vomiting: adequately controlled Pain: adequately controlled Airway Patency, RR, SpO2: stable & adequate BP & HR: stable & adequate Hydration State: stable & adequate Anesthetic Complications: no major complications apparent and Pt Satisfied with anesthetic care
[2024-06-22] MEDS ORDERED: diphenhydrAMINE Capsule 25 MG CAP PO PRN (16:56)
[2024-06-22] MEDS ORDERED: MoRPHine SULFATE 2 MG/ML CARP IV PRN (16:56)
[2024-06-22] MEDS ORDERED: oxyCODONE/ACETAMINOPHEN 5mg/325mg TAB PO PRN ×2 (16:56)
[2024-06-22] MEDS ORDERED: MoRPHine SULFATE 4 MG/ML 1 ML CARP\\VIAL IV PRN (16:56)
[2024-06-22] MEDS ORDERED: PROMETHAZINE 12.5 MG/50.5 ML BAG IV PRN (16:56)
[2024-06-22] MEDS: KETOROLAC 30 MG/ML VIAL IV PRN (23:30)
[2024-06-23 06:02] VITALS: RESP 16
[2024-06-23 07:42] VITALS: BP 128/71; PULSE 82; TEMP 98.4; O2SAT 97
--- NOTE | 2024-06-23 09:32 | Discharge Summary ---
Date of Service June 23, 2024 Admission HPI Per Admitting Provider 38-year-old gentleman presents with a week history of intermittent pain after eating in the epigastric region and bilateral upper quadrants. This radiates to his back. He did have nausea multiple times. It was improving and he ate enchiladas yesterday and it worsens. Continues through to this morning. No fevers or chills. CT and ultrasound demonstrate gallbladder sludge and pericholecystic fluid with early acute cholecystitis. Principal Diagnosis acute cholecystitis Discharge Data Allergies Allergy/AdvReac Type Severity Reaction Status Date / Time No Known Allergies Allergy Unverified 05/20/17 01:58 Consultations 06/22/24 12:19 ED Decision to Admit Stat Procedures Performed Operation Date: 06/22/24 14:05 Actual Procedures p Laparoscopic Cholecystectomy(Not Applicable) - Cal Cronin MD Ordered Studies 06/22/24 07:05 CT Abd and Pelvis [CT abd pelvis wo con] Stat 06/22/24 09:17 US gallbladder Stat Hospital Course (1) Acute cholecystitis: 38-year-old gentleman presents with acute cholecystitis. He was taken to the operating room and underwent laparoscopic cholecystectomy, the details of which are dictated separate operative note. Was transferred in stable condition to the PACU and subsequently to the floor. During his hospitalization, his diet was advanced as tolerated. Pain control was with IV and subsequently p.o. pain medications. DVT prophylaxis with early ambulation and SCD boots. Pulmonary toilet was encouraged. By the day of discharge, he was tolerating a regular diet, not requiring any IV pain medication, he was discharged home in stable condition. He will follow-up in the office in 2 weeks. Total Time Total Time Spent Total Time Spent (In Minutes): 30 minutes Discharge Plan Discharge Items Patient Disposition: Home - Self-Care Reason For Visit: POSTOP CHOLECYSTECTOMY Activity: Per Instructions section Lifting: No more than 10 pounds Sexual Activity: Wait until after follow-up appointment Exercise/Sports: Wait until after follow-up appointment Non-emergency contact: Surgeon Call non-emergency contact if: you have any medication questions, your symptoms worsen, your pain is not controlled, your pain is worsening, your pain is unusual for you, your temperature is above 101.5, your wound has increased redness, your wound has increased drainage and your wound pain has increased Follow-up/Referrals: Greg Bateman MD [Primary Care Provider] - Diet: Regular Addtl Attending Provider Instructions: Post-Surgical ~Discharge Instructions Activity Recommendations: - lifting limitation: (10 pounds for 4 weeks), - exercise/sex/sports limit: (nonstrenuous for 4 weeks), - driving or machine use limit: (none for 1 week), - Shower/bathe limit: (may shower beginning tomorrow) Diet: - Resume previous diet SPECIAL CARE INSTRUCTIONS: - May shower in 24 hours. Let water run over area and pat dry. - Leave Dermabond in place. - Call the surgeon's office with any questions or concerns - - (ex. temperature higher than 101 degrees F, excessive bleeding or pain). MEDICATIONS: - Resume previous medications unless instructed otherwise by your surgeon. - Ibuprofen 600 mg every 6 hours with food - Percocet 1 every 4 hours, as needed for pain FOLLOW UP VISIT: - If not already scheduled, please call the office to schedule a two week follow-up appointment. Office number Pending Studies at Discharge: No Stand-Alone Forms: My [facility], Smoking Cessation Medications and DC Order Prescriptions: New oxycodone-acetaminophen [Percocet] 5-325 mg tablet 1 tab PO Q6H PRN (Reason: pain) Qty: 10 0RF Continued doxycycline hyclate 100 mg capsule 100 mg PO BID Discharge Orders: Discharge Order (Routine); Ordered 06/23/24 Ordered By: Cal Cronin Admission Data Admit Date/Time: 06/22/24 16:06 Attending Provider: Cal Cronin Admit Provider: Cal Cronin Primary Care Provider: Greg Bateman Other Providers: Cal Cronin
--- NOTE | 2024-06-23 11:09 | Electrocardiogram Report ---
Test Reason : Blood Pressure : */* mmHG Vent. Rate : 70 BPM Atrial Rate : 70 BPM P-R Int : 146 ms QRS Dur : 96 ms QT Int : 400 ms P-R-T Axes : 55 43 -5 degrees QTcB Int : 432 ms Normal sinus rhythm with sinus arrhythmia Normal ECG When compared with ECG of 21-Nov-2011 22:58, No significant change Confirmed by Ying Soria (Bia) on 06/23/2024 11:08:40 AM Referred By: REFERRED SELF Confirmed By: Ying Soria
== END 2024-06-23 12:06 | disposition home or self-care (01) ==
LOC: ED 01:46 → 3N 13:24 → ASU 13:24 → 3N 06-25 13:24